=== PATIENT | female | born 1965 | race Caucasian/White ===

== ENCOUNTER 2019-11-23 10:23 | Outpatient (CLI) | payer OTHER, SELFPAY ==
--- NOTE | 2019-11-23 10:37 | MM_ITS ---
WS: [id number] BILATERAL DIGITAL SCREENING MAMMOGRAPHY WITH CAD CLINICAL INFORMATION: LT BREAST LUMP HISTORY: Screening mammogram. No current complaints. COMPARISON: None. TECHNIQUE: Bilateral CC and MLO views. FINDINGS: The breasts are composed of heterogeneous fibroglandular density tissue, which can limit the detectio n of small underlying mass lesions. Palpable marker upper outer left breast. No evidence of underlyin g mammographic mass or lesion. Ultrasound is pending. Right breast is unremarkable and unchanged. ULTRASOUND BREAST LEFT TECHNIQUE: Ultrasound left breast focused area of concern. CLINICAL INFORMATION: LT BREAST LUMP COMPARISON: None. FINDINGS: Ultrasound left breast at the 1:00 position in the area of palpable concern. No evidence of underlyin g mass or lesion. No cystic or solid lesions. No lesions to target for biopsy. MM/[id number] IMPRESSION: BI-RADS: 2-Benign FOLLOW UP: 1 Year Follow-up Recommend return to annual screening mammography.
== END 2019-11-23 10:24 | disposition home or self-care (01) ==
LOC: RADSHAW 10:23
PROVIDERS: PCP Family Medicine; Visit Provider Family Medicine
DX: N63.21 Unspecified lump in the left breast, upper outer quadrant (principal)
CPT/HCPCS: 76642; 77066

== ENCOUNTER 2021-03-06 10:49 | Outpatient (CLI) | payer OTHER, SELFPAY ==
--- NOTE | 2021-03-06 10:53 | MM_ITS ---
WS: [id number] BILATERAL SCREENING DIGITAL MAMMOGRAM WITH CAD HISTORY: SCREENING COMPARISON: 11/23/2019 and 2013 Bilateral CC and MLO views submitted. Computer aided detection analyzed. Breast composition: The breasts are heterogeneously dense, which may obscure small masses. No suspici ous masses, microcalcifications or architectural distortion. MM/[id number] IMPRESSION: BI-RADS: 1-Negative FOLLOW UP: 1 Year Follow-up
== END 2021-03-06 10:50 | disposition home or self-care (01) ==
LOC: RADSHAW 10:52
PROVIDERS: PCP Family Medicine; Visit Provider Family Medicine
DX: Z12.31 Encounter for screening mammogram for malignant neoplasm of breast (principal)
CPT/HCPCS: 77067

== ENCOUNTER 2022-03-10 11:45 | Outpatient (CLI) | payer MEDICAID, SELFPAY ==
--- NOTE | 2022-03-10 11:49 | MM_ITS ---
WS: [id number] BILATERAL SCREENING DIGITAL TOMOSYNTHESIS MAMMOGRAM WITH CAD HISTORY: SCREENING COMPARISON: 03/06/2021 and 12/20/2013 and 11/23/2019 Bilateral CC and MLO views with tomosynthesis and synthetic mammography submitted. Computer aided det ection analyzed. Breast composition: The breasts are heterogeneously dense, which may obscure small masses. No suspici ous masses, microcalcifications or architectural distortion. Benign calcifications anterior RIGHT shanika ast. MM/[place] [id number] IMPRESSION: BI-RADS: 2-Benign FOLLOW UP: 1 Year Follow-up
== END 2022-03-10 11:46 | disposition home or self-care (01) ==
LOC: RAD 11:46
PROVIDERS: PCP Family Medicine; Visit Provider Family Medicine
DX: Z12.31 Encounter for screening mammogram for malignant neoplasm of breast (principal)
CPT/HCPCS: 77063; 77067

== ENCOUNTER 2023-01-20 13:08 | Emergency (ER) | payer MEDICAID, SELFPAY ==
[2023-01-20 13:17] VITALS: BP 152/101; PULSE 104; RESP 18; O2SAT 96; BMI 18.3
--- NOTE | 2023-01-20 13:30 | XR_ITS ---
WS: [id number] Portable AP upright chest, 01/20/2023 Clinical Data: afib Comparison: None. Findings: No nodules, masses or effusions are seen. There is a patchy opacity overlying the right mid lung which could represent atelectasis and/or pneumonia. Both diaphragms are flattened. The heart is slightly enlarged. The pulmonary vascularity is not increased. No pneumothorax is seen. Impression: 1. Cardiomegaly. 2. Minimal patchy right midlung opacity which could represent atelectasis and/or pneumonia.
[2023-01-20 14:01] LABS: Basophils # 0.1 10^3/uL (0.0-0.1); Basophils % 0.6 %; Eosinophils # 0.2 10^3/uL (0.0-0.8); Eosinophils % 2.4 %; Hematocrit 47.8 % (37.0-47.0); Hemoglobin 15.9 g/dL (11.5-15.3); Lymphocytes # 2.5 10^3/uL (0.8-4.8); Lymphocytes % 29.2 %; Mean Corpuscular HGB Conc 33.3 g/dL (30.0-36.0); Mean Corpuscular Hemoglobin 32.3 pg (28.0-34.0); Mean Corpuscular Volume 97.2 fl (81-99); Mean Platelet Volume 9.7 fL (7.4-10.4); Monocytes # 0.8 10^3/uL (0.2-0.9); Monocytes % 9.4 %; Neutrophils # 4.89 10^3/uL (1.8-7.7); Nucleated Red Blood Cells % 0 %; Platelet Count 323 10^3/cmm (130-400); Red Blood Count 4.92 10^6/uL (4.1-5.3); Red Cell Distribution Width 11.5 % (12.1-15.1); White Blood Count 8.4 10^3/uL (4.0-10.0)
[2023-01-20 14:26] LABS: Alanine Aminotransferase 48 U/L (0-33); Albumin Level 4.7 g/dL (3.5-5.2); Alkaline Phosphatase 129 U/L (35-105); Aspartate Amino Transferase 49 U/L (0-32); Blood Urea Nitrogen 5 mg/dL (8-23); Carbon Dioxide 27 mmol/L (22-29); Chloride 94 mmol/L (98-107); Globulin 2.8 g/dL (1.3-4.6); Glomerular Filtration Rate 125.9 mL/min (90-130); Glucose 125 mg/dL (65-115); Osmolality Calculated 279 mOsm/kg (285-295); Sodium 135 mmol/L (136-145); Total Bilirubin 0.7 mg/dL (0.15-1.2); Total Protein 7.5 g/dL (6.6-8.7)
[2023-01-20 14:28] LABS: Anion Gap 18.1 (5-19); Potassium 4.1 mmol/L (3.5-5.1); Troponin(5th) Baseline 8 ng/L (0-10)
--- NOTE | 2023-01-20 14:39 | W.ED.ARRPALP ---
HPI - Arrhythmia/Palpitations General: Chief Complaint: Arrhythmia/Palpitations Stated Complaint: sent for heart issues Time Seen by Provider: 01/20/23 13:46 Source: patient Mode of arrival: ambulatory Limitations: no limitations History of Present Illness: 58-year-old female who states she was seen by her PCP last week who diagnosed with A-fib she states that her PCP had wanted her to come to the ER last week she states she does not like hospitals and could not make it up till today. She is on metoprolol she states she has no symptoms she states when she first got here she was anxious her heart rate was elevated then its now 96 in the room. She denies any chest pain denies any shortness of breath. Associated symptoms: Deny nausea or vomiting Review of Systems Const: Denies: fever(s), chills, body aches or change in appetite ENMT: Denies: throat pain or dental pain Card: Reports: irregular heart rhythm; Denies: chest pain Resp: Denies: dyspnea GI: Denies: abdominal pain, nausea, vomiting or diarrhea Musc: Denies: neck pain or back pain Skin/Breast: Denies: rash Neuro: Denies: headache(s) Physical Exam Const: COMMON NORMALS: no acute distress, patient oriented x3 and healthy appearing HENMT: COMMON NORMALS: normocephalic and atraumatic HEAD & SCALP: normocephalic and atraumatic Neck/C-Spine: COMMON NORMALS: full ROM and supple Chest: COMMONS NORMALS: normal inspection of the chest and normal palpation of entire chest wall Resp: COMMON NORMALS: normal respiratory effort, No retractions, No use of accessory muscles and clear to auscultation bilaterally AUSCULTATION: clear to auscultation bilaterally Cardio: COMMON NORMALS: No murmurs present (Cardio) RATE: tachycardic RHYTHM: abnormal rhythm irregularly irregular GI: COMMON NORMALS: Normal to inspection, nondistended, normoactive bowel sounds present, Soft to palpation, non-tender and no masses PALPATION: Yes Soft to palpation Extremity: COMMON NORMALS: normal to inspection and full ROM Neuro: COMMON NORMALS: patient oriented x3, moves all extremities and no focal motor deficits Psych: COMMON NORMALS: mental status grossly normal, Normal thought process present and cooperative THOUGHT PROCESS: Normal thought process present Skin: COMMON NORMALS: no rashes or lesions noted and no wounds GENERAL SKIN EXAM: no rashes or lesions noted Course Vital Signs: Vital signs: Vital Signs Pulse Rate 114 H 01/20/23 14:50 Respiratory Rate 18 01/20/23 14:50 Blood Pressure 142/110 01/20/23 14:50 Pulse Oximetry 95 01/20/23 14:50 Oxygen Delivery Me thod Room Air 01/20/23 14:50 MDM - Arrhythmia/Palpitations Medical Decision Making Patient presents here with A-fib with RVR is new onset spoke to her at length she does not want to stay in the hospital she states that she does not like hospitals and would much prefer to go home I spoke to the agronomy research manager Dr. Ortega she is already on metoprolol she is to continue that we will start her on Eliquis we will get her follow-up with Dr. Ortega if she worsens she is to return she understands agrees to plan. Medical Records I reviewed the patient's medical records. Lab Data I reviewed the patient's lab results. 01/20/23 13:53 01/20/23 13:53 Laboratory Results WBC 8.4 10^3/uL (4.0-10.0) 01/20/23 13:53 RBC 4.92 10^6/uL (4.1-5.3) 01/20/23 13:53 Hgb 15.9 g/dL (11.5-15.3) H 01/20/23 13:53 Hct 47.8 % (37.0-47.0) H 01/20/23 13:53 MCV 97.2 fl (81-99) 01/20/23 13:53 MCH 32.3 pg (28.0-34.0) 01/20/23 13:53 MCHC 33.3 g/dL (30.0-36.0) 01/20/23 13:53 RDW 11.5 % (12.1-15.1) L 01/20/23 13:53 Plt Count 323 10^3/cmm (130-400) 01/20/23 13:53 MPV 9.7 fL (7.4-10.4) 01/20/23 13:53 Neut % (Auto) 58.0 % 01/20/23 13:53 Lymph % (Auto) 29.2 % 01/20/23 13:53 Cavalier % (Auto) 9.4 % 01/20/23 13:53 Eos % (Auto) 2.4 % 01/20/23 13:53 Baso % (Auto) 0.6 % 01/20/23 13:53 Neut # (Auto) 4.89 10^3/uL (1.8-7.7) 01/20/23 13:53 Lymph # (Auto) 2.5 10^3/uL (0.8-4.8) 01/20/23 13:53 Cavalier # (Auto) 0.8 10^3/uL (0.2-0.9) 01/20/23 13:53 Eos # (Auto) 0.2 10^3/uL (0.0-0.8) 01/20/23 13:53 Baso # (Auto) 0.1 10^3/uL (0.0-0.1) 01/20/23 13:53 Nucleated RBC % (auto) 0 % 01/20/23 13:53 Nucleated RBCs # 0.0 /100WBC 01/20/23 13:53 Sodium 135 mmol/L (136-145) L 01/20/23 13:53 Potassium 4.1 mmol/L (3.5-5.1) 01/20/23 13:53 Chloride 94 mmol/L (98-107) L 01/20/23 13:53 Carbon Dioxide 27 mmol/L (22-29) 01/20/23 13:53 Anion Gap 18.1 (5-19) 01/20/23 13:53 BUN 5 mg/dL (8-23) L 01/20/23 13:53 Creatinine 0.5 mg/dL (0.5-0.9) 01/20/23 13:53 GFR Calculation 125.9 mL/min (90-130) 01/20/23 13:53 Glucose 125 mg/dL (65-115) H 01/20/23 13:53 Calculated Osmolality 279 mOsm/kg (285-295) L 01/20/23 13:53 Calcium 10.0 mg/dL (8.5-10.5) 01/20/23 13:53 Total Bilirubin 0.7 mg/dL (0.15-1.2) 01/20/23 13:53 AST 49 U/L (0-32) H 01/20/23 13:53 ALT 48 U/L (0-33) H 01/20/23 13:53 Alkaline Phosphatase 129 U/L (35-105) H 01/20/23 13:53 Troponin T Baseline 8 ng/L (0-10) 01/20/23 13:53 Total Protein 7.5 g/dL (6.6-8.7) 01/20/23 13:53 Albumin 4.7 g/dL (3.5-5.2) 01/20/23 13:53 Globulin 2.8 g/dL (1.3-4.6) 01/20/23 13:53 EKG Data EKG 1: I personally reviewed and interpreted this EKG as follows: EKG interpretation date: 01/20/23 EKG interpretation time: 13:37 Interpretation: afib with rvr hr [address] or t wave abnormalities qrs 91 qtc 379 Discharge Plan Discharge Patient Disposition: Home Clinical Impression: Atrial fibrillation Condition: Stable Prescriptions: New Eliquis 5 mg tablet 5 mg PO BID Qty: 60 0RF Discharge Orders: Discharge ED (Routine); Ordered 01/20/23 Ordered By: Murtaza Salinas Referrals: Liya Bonilla MD [Primary Care Provider] - Elio Mendez M.D [Physician] - 1-3 days Discharge Diet: Advance as tolerated Discharge Activity: Resume usual activity Patient Instructions: A-fib (Atrial Fibrillation) (ED) Coding Level of Care Code ED Dyed Raw Stock Blower Feeder for Leanna Rodriguez
--- NOTE | 2023-01-20 14:46 | ECG_ITS ---
[facility] Test Date: 2023-01-20 Pat Name: Elizabeth Avitia Department: Room: Gender: Female Rfp Writer: : 1965 Requested By: Murtaza Salinas Order Number: [id number] Isabel MD: Elio Mendez M.D. Measurements Intervals [place] Rate: 113 P: 0 GA: 0 QRS: 63 QRSD: 88 T: 22 QT: 315 QTc: 432 Interpretive Statements ATRIAL FIBRILLATION WITH RAPID VENTRICULAR RESPONSE WITH ABERRANT CONDUCTION OR VENTRICULAR PREMATURE COMPLEXES POSSIBLE RIGHT VENTRICULAR CONDUCTION DELAY [RSR (QR) IN V1/V2] NONSPECIFIC T-WAVE ABNORMALITY No previous ECG available for comparison Electronically Signed On 01-20-2023 15:16:42 CDT by Elio Mendez M.D. [id number]
[2023-01-20 14:50] VITALS: BP 142/110; PULSE 114; RESP 18; O2SAT 95
--- NOTE | 2023-01-21 08:45 | DCPLANNER ---
Addendum entered by Jennifer Mcnair 01/25/23 11:49: Patient has a follow up appointment scheduled for Wednesday, February 22, 2023 at 12:[address] Mendez at the [facility]. Original Note: advertising campaign manager had message to schedule a follow up appointment for patient with cardiology. advertising campaign manager sent patients information to the front office staff at the [facility]. Patients information will be printed and reviewed. Clinic will call patient with appointment information.
== END 2023-01-20 14:59 | disposition home or self-care (01) ==
PROVIDERS: Emergency Provider Emergency Medicine; PCP Family Medicine
DX: I48.91 Unspecified atrial fibrillation (principal)
CPT/HCPCS: 36415; 71045; 80053; 84484; 85025; 93005; 99285

== ENCOUNTER 2023-03-07 12:21 | Outpatient (CLI) | payer MEDICAID, SELFPAY ==
--- NOTE | 2023-03-07 12:15 | USCV_ITS ---
Elizabeth Avitia Age: 58 Gender: F : 1965 Exam Date: 03/07/2023 12:54 Ordering Phys: Elio Mendez M.D ([email or web address]) Technologist: Vanessa Bello Exam Location: [facility] [place] Indication: htn, a fib, melgar BP: 138 / 72 HR: 108 Rhythm: Atrial fibrillation Technical Quality: Good MEASUREMENTS (Male / Female) Normal Values 2D ECHO LV Diastolic Diameter PLAX 4.2 cm 4.2 - 5.9 / 3.9 - 5.3 cm LV Systolic Diameter PLAX 2.4 cm IVS Diastolic Thickness 0.9 cm 0.6 - 1.0 / 0.6 - 0.9 cm IVS Systolic Thickness 1.4 cm LVPW Diastolic Thickness 0.9 cm 0.6 - 1.0 / 0.6 - 0.9 cm LVPW Systolic Thickness 1.3 cm LVOT Diameter 2.0 cm LV Ejection Fraction 2D Teich 73.2 % LV Ejection Fraction MOD 2C 54.1 % LV Ejection Fraction 2C AL 53.9 % LA Diameter 3.3 cm LA Width 3.2 cm LA Height 4.6 cm RA Width 2.8 cm RA Height 4.6 cm Aorta at Sinotubular Diameter 2.4 cm IVC Diameter 1.4 cm M-MODE Aortic Annulus Diameter 3.0 cm LA Ao Ratio MM 1.2 MV E Point Septal Separation 0.3 cm DOPPLER AV Peak Velocity 100.0 cm/s LVOT Peak Velocity 67.0 cm/s AV Area Cont Eq vti 2.0 cm squared AV Area Cont Eq pk 2.1 cm squared MV Peak Velocity 136.0 cm/s MV Area PHT 4.3 cm squared Mitral E to A Ratio 210.1 MV E' Velocity 82.0 cm/s Mitral E to MV E' Ratio 9.6 Mitral E to LV E' Lateral Ratio 8.6 Mitral E to LV E' Septal Ratio 10.9 TR Peak Velocity 176.3 cm/s TR Peak Gradient 12.4 mmHg Right Atrial Pressure 5.0 mmHg Pulmonary Artery Systolic Pressu 17.4 mmHg PV Peak Velocity 52.0 cm/s RV Acceleration Time 0.1 s RV Ejection Time 0.3 s RV AcT/ET 0.4 FINDINGS Left Ventricle Left ventricle is normal in size. LV systolic function is normal with EF of 55 to 60%. No regional wall motion abnormalities are seen. Diastolic function is indeterminate because of atrial fibrillation Right Ventricle Normal in size and function Right Atrium Normal in size Left Atrium Normal in size Mitral Valve Structurally normal mitral valve. Moderate mitral regurgitation. Aortic Valve Structurally normal aortic valve. No significant stenosis. Tricuspid Valve Mild tricuspid regurgitation. Pulmonary artery systolic pressure is normal Pulmonic Valve Not well visualized Pericardium Normal Aorta Normal in size IVC Appears to be normal CONCLUSIONS LV systolic function is normal with EF of 55 to 60%. Diastolic function is indeterminate because of atrial fibrillation. Moderate mitral regurgitation. Mild tricuspid regurgitation. No comparison studies are available. Elio Mendez MD (Electronically Signed) Final Date: 22 March 2023 14:53 S
== END 2023-03-07 12:22 | disposition home or self-care (01) ==
LOC: RAD 12:23
PROVIDERS: PCP Family Medicine; Visit Provider Internal Medicine
DX: R06.09 Other forms of dyspnea (principal); R07.9 Chest pain, unspecified; R06.02 Shortness of breath; I10 Essential (primary) hypertension; I48.91 Unspecified atrial fibrillation; I08.1 Rheumatic disorders of both mitral and tricuspid valves
CPT/HCPCS: 93306

== ENCOUNTER 2023-04-01 10:05 | Outpatient (CLI) | payer MEDICAID, SELFPAY ==
--- NOTE | 2023-04-01 10:08 | US_ITS ---
WS: [id number] RIGHT UPPER QUADRANT ULTRASOUND HISTORY: Elevated liver enzymes COMPARISON: None available. Liver: 13.9 cm in length. Normal size with mild coarse echotexture. No mass or bile duct dilatation. Portal Vein: Normal hepatopetal flow with monophasic waveform. Gallbladder: Normally distended gallbladder with no stones or wall thickening. CBD: 0.2 cm Pancreas: Poorly visualized. Right kidney: 11.1 cm in length. Normal size and echogenicity. No hydronephrosis or mass. Aorta and IVC: Unremarkable abdominal aorta and IVC. No ascites. IMPRESSION: 1. No cholelithiasis. 2. Pancreas poorly visualized.
--- NOTE | 2023-04-01 10:10 | MM_ITS ---
WS: [id number] VIEWS: MLO and CC views both breasts. 3D digital tomosynthesis is also included in this exam. Comparison made with prior exam of 03/25/2006, 09/28/2006, 02/12/2009, 02/25/2012, 12/20/2013, 12/28/2013, 11/23/2019, 03/06/2021, 03/10/2022.. Findings: There was no sign of mass, architectural distortion or suspicious calcification in either breast. The breasts are extremely dense which lowers the sensitivity of mammography. Impression: MM/[place] [id number] BI-RADS: 2-Benign finding FOLLOW-UP: 1 Year Follow-up This mammogram was also analyzed by the Computer Aided Detection System R2 Imag e Salesperson [employer].
== END 2023-04-01 10:06 | disposition home or self-care (01) ==
LOC: RAD 10:05
PROVIDERS: PCP Family Medicine; Visit Provider Family Medicine
DX: Z12.31 Encounter for screening mammogram for malignant neoplasm of breast (principal); R74.8 Abnormal levels of other serum enzymes
CPT/HCPCS: 76705; 77063; 77067

== ENCOUNTER → 2023-05-27 10:53 | Day surgery (SDC) | payer MEDICAID, SELFPAY ==
--- NOTE | 2023-05-27 11:09 | ECG_ITS ---
[facility] Test Date: 2023-05-27 Pat Name: Elizabeth Avitia Department: Room: Gender: Female Character Actress: : 1965 Requested By: Elio Mendez Order Number: [id number] Isabel MD: Thanh Silver M.D. Measurements Intervals [place]aver Rate: 76 P: -51 CA: 198 QRS: 68 QRSD: 105 T: 43 QT: 391 QTc: 442 Interpretive Statements SINUS RHYTHM INDETERMINATE AXIS INCOMPLETE RIGHT BUNDLE BRANCH BLOCK [90+ ms QRS DURATION, TERMINAL R IN V1/V2, 40+ ms S IN I/aVL/V4/V5/V6] Compared to ECG 01/20/2023 14:46:10 Indeterminate axis now present Incomplete right bundle-branch block now present Atrial fibrillation no longer present Aberrant conduction of supraventricular beat(s) no longer present Ventricular premature complex(es) no longer present T-wave abnormality no longer present Electronically Signed On 05-27-2023 19:46:02 FLOORWORKER LASTING by Thanh Silver M.D. [id number]
[2023-05-27 11:16] VITALS: BP 147/89; PULSE 76; RESP 18; TEMP 36.6; O2SAT 89; BMI 18.1
--- NOTE | 2023-05-27 11:45 | PC.NURSE ---
1145 Dr. Mendez here to see pt. procedures cancelled due to pt not in a-fib.
--- NOTE | 2023-05-27 13:11 | PM.CONSULT ---
Providers/Reason For Consult Attending Physician: Eilo Mendez M.D Primary Care Provider: Liya Bonilla MD History of Present Illness History of Present Illness Elizabeth Avitia is a 58 year old female Medications/Allergies Home Medications Medication Instructions Recorded Confirmed Last Taken Type amlodipine 5 mg tablet 5 mg PO DAILY 02/22/23 05/27/23 05/27/23 09:45 History amiodarone 400 mg tablet 400 mg PO DAILY #90 tabs 05/16/23 05/27/23 05/27/23 09:45 Rx apixaban 5 mg tablet (Eliquis) 5 mg PO BID #90 tabs 05/16/23 05/27/23 05/27/23 09:45 Rx metoprolol tartrate 100 mg tablet 100 mg PO DIRECTED 05/16/23 05/27/23 05/26/23 History Allergies Allergy/AdvReac Type Severity Reaction Status Date / Time No Known Allergies Allergy Verified 05/16/23 12:48 Vitals/I&O/Wt Last Vital Signs Temp 97.8 F 05/27/23 11:16 Pulse 76 05/27/23 11:16 Resp 18 05/27/23 11:16 BP 147/89 05/27/23 11:16 Pulse Ox 89 L 05/27/23 11:16 O2 Del Method Room Air 05/27/23 11:16 Weight last 48 hrs Weight 112 lb Coding Level of Care Code Acute Code for Chg Fwd
== END ==
LOC: GILAB 10:54
PROVIDERS: PCP Family Medicine; Visit Provider Internal Medicine
PROC: (CPT 93312; principal; 2023-05-27 12:00)
PROC: 5A2204Z Restoration of Cardiac Rhythm, Single (ICD-10-PCS; 2023-05-27 12:00)
DX: I48.91 Unspecified atrial fibrillation (principal)
CPT/HCPCS: 93005

== ENCOUNTER 2023-05-27 12:11 | Inpatient (IN) | payer MEDICAID, SELFPAY ==
[2023-05-27] VITALS (7 sets, daily range): BP systolic 108–151; BP diastolic 70–90; PULSE 62–79; RESP 16–18; TEMP 36.3–36.7; O2SAT 94–99; BMI 18.1
--- NOTE | 2023-05-27 12:18 | XRR_ITS ---
PROCEDURE INFORMATION: Exam: XR Chest Exam date and time: 05/27/2023 12:44 PM Age: 58 years old Clinical indication: Shortness of breath; Additional info: SOB TECHNIQUE: Imaging protocol: Radiologic exam of the chest. Views: 1 view. COMPARISON: CR XR chest 1V portable [id number] 01/20/2023 1:42 PM FINDINGS: Lungs: Interval appearance of areas of increased opacity in the right mid lung zone with components of airspace, ground-glass and coarsened reticular opacity. Additional elliptical opacity in the right mid lung zone has an appearance suggestive of fluid in the interlobar fissure. Small right pleural effusion. No left effusion. Pulmonary emphysema. Coarsened interstitium is present. Interval appearance of some Seble lines at both lung bases. Cardiac silhouette appears slightly increased though component age magnifications present. Pleural spaces: See Lungs finding. Heart/Mediastinum: See Lungs finding. Bones/joints: No significant pathology. XR/XR chest 1V portable [id number] IMPRESSION: Interval appearance of new abnormalities. Constellation of findings suggests mild congestive failure and/or fluid overload with possible superimposed infectious/inflammatory pathology of the right lung base. Clinical correlation recommended.
--- NOTE | 2023-05-27 12:32 | ECG_ITS ---
[facility] Test Date: 2023-05-27 Pat Name: Elizabeth Avitia Department: Room: Gender: Female Deputy Chief Magistrate: : 1965 Requested By: Khloe Duron Order Number: [id number] Hall MD: Thanh Silver M.D. Measurements Intervals [place] Rate: 74 P: -81 NH: 202 QRS: 71 QRSD: 105 T: 57 QT: 401 QTc: 448 Interpretive Statements SINUS RHYTHM INCOMPLETE RIGHT BUNDLE BRANCH BLOCK [90+ ms QRS DURATION, TERMINAL R IN V1/V2, 40+ ms S IN I/aVL/V4/V5/V6] Compared to ECG 05/27/2023 11:22:51 Indeterminate axis no longer present Electronically Signed On 05-27-2023 19:28:09 MERCHANDISE FLOW ASSOCIATE by Thanh Silver M.D. [id number]
--- NOTE | 2023-05-27 12:35 | ED_ITS ---
<Statement entered by Tomasz Smith DO - 05/27/23 14:40> This patient was seen and evaluated by the PA. Per departmental policy this patient was reviewed with me in real-time while in the emergency department by the PA who provided her primary care. We reviewed her x-ray findings and other ancillary studies which suggested community associated pneumonia with hypoxia and hyponatremia. Her presentation is consistent with that which would benefit from IV antibiotics, hospitalization and further care. She discussed the case with the attending hospitalist who agreed to admit the patient. I agree with the plan of care as outlined in this medical record. I did not personally see or evaluate the patient. HPI - SOB/Dyspnea 2 General: Chief Complaint: Shortness of Breath/Dyspnea Stated Complaint: lethargic Time Seen by Provider: 05/27/23 12:12 Source: patient Mode of arrival: wheelchair Limitations: no limitations History of Present Illness: HPI Narrative: Patient is a 58-year-old female who presents to ED today from the surgery center. She is reportedly scheduled for a GEOVANNY with cardioversion for her uncontrolled atrial fibrillation. Apparently upon arrival she had converted out of atrial fibrillation this procedure could not be performed. She was noted to be slightly hypoxic and complaining of shortness of breath and seemed somewhat lethargic. Cardiology had recommended she come to the ED for evaluation as they had concerns for CHF. PMH is significant for uncontrolled atrial fibrillation and hypertension. Current medications include amiodarone, amlodipine, apixaban, and metoprolol. Patient tells me her shortness of breath has been going on almost a year although it has been worsening over the past few months. Symptoms seem to be worse with exertion. Denies recent illness or URI-like symptoms. Last echo was in March 2023 with results as follows: CONCLUSIONS LV systolic function is normal with EF of 55 to 60%. Diastolic function is indeterminate because of atrial fibrillation. Moderate mitral regurgitation. Mild tricuspid regurgitation. No comparison studies are available. MD elicited complaint: shortness of breath Pertinent past history: other (atrial fib) Onset (ago): month(s) Timing: constant Severity: moderate Exacerbating factors: lying flat and exertion Relieving factors: rest Associated symptoms: Reports orthopnea and palpitations (chronic); Deny abdominal pain, chest congestion, chest pain, dizziness, extremity pain, fever(s), hemoptysis, lightheadedness, nausea, syncope or vomiting Treatment prior to arrival: oxygen Related Data: Home oxygen amount: none Review of Systems 2 Const: Denies: fever(s) or chills Eyes: Denies: change in vision or blurry vision Card: Reports: palpitations (chronic), irregular heart rhythm, edema, dyspnea on exertion (chronic) and orthopnea; Denies: chest pain, swelling of feet/ankles, lightheadedness, syncope, pre- syncope, leg pain with exertion or acrocyanosis Resp: Reports: dyspnea; Denies: productive cough, non-productive cough, wheezing, stridor, pain on inspiration, change in phlegm color, hemoptysis or chest congestion GI: Denies: abdominal pain, nausea, vomiting, heartburn or diarrhea : Denies: flank pain or dysuria Musc: Denies: neck pain, back pain, extremity pain or joint pain Skin/Breast: Denies: rash Neuro: Denies: headache(s), numbness in extremities, weakness in extremities, sensory changes or dizziness Physical Exam 2 Const: COMMON NORMALS: no acute distress, average body habitus, patient oriented x3, no limitations, healthy appearing, alert and well nourished HENMT: COMMON NORMALS: normocephalic and atraumatic HEAD & SCALP: n ormocephalic and atraumatic Neck/C-Spine: COMMON NORMALS: full ROM, no lymphadenopathy, supple and no meningeal signs Chest: COMMONS NORMALS: normal inspection of the chest Resp: COMMON NORMALS: normal respiratory effort AUSCULTATION: crackles Laterality: right (mid to lower) OTHER: slightly hypoxic upon arrival-placed on 2L O2 and now satting normally Cardio: COMMON NORMALS: regular rate and regular rhythm RATE: regular rate RHYTHM: regular rhythm GI: COMMON NORMALS: Normal to inspection, nondistended, normoactive bowel sounds present, Soft to palpation, non-tender, No hepatosplenomegaly present and no masses PALPATION: Yes Soft to palpation and Yes No hepatosplenomegaly present : COMMON NORMALS: Yes no CVA tenderness BLADDER/KIDNEY EXAM: Yes no CVA tenderness Back/Pelvis: COMMON NORMALS: no CVA tenderness and thoracic and lumbar spine normal to inspection Extremity: COMMON NORMALS: normal to inspection, full ROM, capillary refill normal, no joint enlargement and no calf tenderness NARRATIVE EXTREMITY EXAM: slight bilateral symmetrical edema GENERAL: Yes normal exam except as noted Neuro: COMMON NORMALS: patient oriented x3, moves all extremities, no focal motor deficits and no sensory deficits noted SENSORIUM/ORIENTATION: Yes alert MENINGEAL SIGNS: Yes no meningeal signs Skin: COMMON NORMALS: no rashes or lesions noted GENERAL SKIN EXAM: no rashes or lesions noted Course 2 Vital Signs: Vital signs: Vital Signs Temperature 98.0 F 05/27/23 12:17 Pulse Rate 79 05/27/23 12:17 Respiratory Rate 16 05/27/23 12:17 Blood Pressure 151/90 05/27/23 12:17 Pulse Oximetry 94 05/27/23 12:17 Oxygen Delivery Me thod Nasal Cannula 05/27/23 12:17 Oxygen Flow Rate 2 05/27/23 12:17 MDM - SOB/Dyspnea Medical Decision Making Patient is a 58-year-old female here after her planned GEOVANNY with cardioversion was canceled for complaints of shortness of breath, hypoxia, lethargy. Report was patient was satting 88% on room air when she arrived for her procedure. She does complain of shortness of breath and some new edema. She has not been running fevers. On her blood work today she is hyponatremic at 120. When asked she does report to diarrhea for 2 days recently after she was started on amiodarone. Her BNP is elevated at almost 1400 with no comparisons. CXR showing mild congestive failure and/or fluid overload with possible superimposed infectious/inflammatory pathology of the right lung base. I spoke with Dr. Smith who agrees with need for admission. She has been started on IV Azithromycin/Rocephin. I spoke to Dr. Lagos/hospitalist for admission. Differential Diagnosis Likely congestive heart failure and community acquired pneumonia Lab Data 05/27/23 12:35 05/27/23 12:35 Labs/Radiology: Radiology Impressions Chest X-Ray 05/27/23 12:18 IMPRESSION: Interval appearance of new abnormalities. Constellation of findings suggests mild congestive failure and/or fluid overload with possible superimposed infectious/inflammatory pathology of the right lung base. Clinical correlation recommended. Laboratory Results WBC 9.47 10^3/uL (3.29-11.43) 05/27/23 12:35 RBC 4.58 10^6/uL (3.85-5.65) 05/27/23 12:35 Hgb 15.20 g/dL (11.27-16.99) 05/27/23 12:35 Hct 42.0 % (36-47) 05/27/23 12:35 MCV 91.7 fl (85-98) 05/27/23 12:35 MCH 33.2 pg (27-33) H 05/27/23 12:35 MCHC 36.2 g/dL (30-55) 05/27/23 12:35 RDW 11.6 % (12.1-15.1) L 05/27/23 12:35 Plt Count 176 10^3/cmm (157-399) 05/27/23 12:35 MPV 10.0 fL (7.4-10.4) 05/27/23 12:35 Neut % (Auto) 78.1 % 05/27/23 12:35 Lymph % (Auto) 12.9 % 05/27/23 12:35 [place] % (Auto) 8.4 % 05/27/23 12:35 Eos % (Auto) 0.0 % 05/27/23 12:35 Baso % (Auto) 0.3 % 05/27/23 12:35 Neut # (Auto) 7.39 10^3/uL (1.8-7.7) 05/27/23 12:35 Lymph # (Auto) 1.2 10^3/uL (0.8-4.8) 05/27/23 12:35 [place] # (Auto) 0.8 10^3/uL (0.2-0.9) 05/27/23 12:35 Eos # (Auto) 0.0 10^3/uL (0.0-0.8) 05/27/23 12:35 Baso # (Auto) 0.0 10^3/uL (0.0-0.1) 05/27/23 12:35 Nucleated RBC % (auto) 0 % 05/27/23 12:35 Nucleated RBCs # 0.0 /100WBC 05/27/23 12:35 Sodium 120 mmol/L (136-145) L 05/27/23 12:35 Potassium 4.0 mmol/L (3.5-5.1) 05/27/23 12:35 Chloride 81 mmol/L (98-107) L 05/27/23 12:35 Carbon Dioxide 24 mmol/L (22-29) 05/27/23 12:35 Anion Gap 19.0 (5-19) 05/27/23 12:35 BUN 4 mg/dL (8-23) L 05/27/23 12:35 Creatinine 0.3 mg/dL (0.5-0.9) L 05/27/23 12:35 GFR Calculation 226.9 mL/min (90-130) H 05/27/23 12:35 Glucose 105 mg/dL (65-115) 05/27/23 12:35 Calculated Osmolality 247 mOsm/kg (285-295) L 05/27/23 12:35 Calcium 9.1 mg/dL (8.5-10.5) 05/27/23 12:35 Total Bilirubin 1.3 mg/dL (0.15-1.2) H 05/27/23 12:35 AST 28 U/L (0-32) 05/27/23 12:35 ALT 35 U/L (0-33) H 05/27/23 12:35 Alkaline Phosphatase 143 U/L (35-105) H 05/27/23 12:35 Troponin T Baseline 8 ng/L (0-10) 05/27/23 12:35 NT-Pro-B Natriuret Pep 1397 pg/mL (0-125) H 05/27/23 12:35 Total Protein 7.1 g/dL (6.6-8.7) 05/27/23 12:35 Albumin 4.6 g/dL (3.5-5.2) 05/27/23 12:35 Globulin 2.5 g/dL (1.3-4.6) 05/27/23 12:35 Procalcitonin 0.02 ng/mL (0-0.5) 05/27/23 12:35 All radiology interpretation(s) finalized by discharge Discharge Plan Discharge Patient Disposition: Admitted As Inpatient Clinical Impression: Acute hyponatremia Community acquired pneumonia Qualifiers: Laterality: right Lung location: lower lobe of lung Qualified Code(s): J18.9 - Pneumonia, unspecified organism Congestive heart failure Qualifiers: Heart failure type: other Qualified Code(s): I50.9 - Heart failure, unspecified Condition: Stable Coding Level of Care Code ED Mri Specialist for Leanna Rodriguez
[2023-05-27 12:47] LABS: Basophils % 0.3 %; Lymphocytes # 1.2 10^3/uL (0.8-4.8); Lymphocytes % 12.9 %; Mean Corpuscular HGB Conc 36.2 g/dL (30-55); Mean Corpuscular Hemoglobin 33.2 pg (27-33); Mean Corpuscular Volume 91.7 fl (85-98); Monocytes # 0.8 10^3/uL (0.2-0.9); Monocytes % 8.4 %; Neutrophils # 7.39 10^3/uL (1.8-7.7); Neutrophils % 78.1 %; Nucleated Red Blood Cells % 0 %; Platelet Count 176 10^3/cmm (157-399); Red Blood Count 4.58 10^6/uL (3.85-5.65); Red Cell Distribution Width 11.6 % (12.1-15.1); White Blood Count 9.47 10^3/uL (3.29-11.43)
[2023-05-27 13:15] LABS: Troponin(5th) Baseline 8 ng/L (0-10)
[2023-05-27 13:27] LABS: Alanine Aminotransferase 35 U/L (0-33); Albumin Level 4.6 g/dL (3.5-5.2); Alkaline Phosphatase 143 U/L (35-105); Aspartate Amino Transferase 28 U/L (0-32); Blood Urea Nitrogen 4 mg/dL (8-23); Calcium 9.1 mg/dL (8.5-10.5); Carbon Dioxide 24 mmol/L (22-29); Chloride 81 mmol/L (98-107); Globulin 2.5 g/dL (1.3-4.6); Glomerular Filtration Rate 226.9 mL/min (90-130); Glucose 105 mg/dL (65-115); NT Pro B Type Natriuretic Pept 1397 pg/mL (0-125); Osmolality Calculated 247 mOsm/kg (285-295); Sodium 120 mmol/L (136-145); Total Bilirubin 1.3 mg/dL (0.15-1.2); Total Protein 7.1 g/dL (6.6-8.7)
[2023-05-27 13:53] LABS: Procalcitonin 0.02 ng/mL (0-0.5)
--- NOTE | 2023-05-27 14:14 | ECG_ITS ---
[facility] Test Date: 2023-05-27 Pat Name: Elizabeth Avitia Department: Room: Gender: Female Early Education Teacher: : 1965 Requested By: Khloe Duron Order Number: [id number] Hall MD: Thanh Silver M.D. Measurements Intervals [place] Rate: 74 P: -66 PA: 202 QRS: 61 QRSD: 106 T: 54 QT: 418 QTc: 465 Interpretive Statements SINUS RHYTHM POSSIBLE RIGHT VENTRICULAR CONDUCTION DELAY [RSR (QR) IN V1/V2] Compared to ECG 05/27/2023 12:32:24 Incomplete right bundle-branch block no longer present Electronically Signed On 05-27-2023 19:46:39 WASH WORKER by Thanh Silver M.D. [id number]
--- NOTE | 2023-05-27 14:24 | P.CONIM_ITS ---
Providers/Reason For Consult 2 Consulting Physician/Specialty*: Elio Mendez MD/ Cardiology Reason for Consult*: Congestive heart failure Requesting Physician: Dr Lagos Attending Physician: Dr Lagos Primary Care Provider: Liya Bonilla MD History of Present Illness History of Present Illness Elizabeth Avitia is a 58 year old female with recent diagnosis of atrial fibrillation who was recently started on amiodarone in preparation for GEOVANNY cardioversion today. However when patient came for the procedure, she was found to be in normal sinus rhythm. She says since starting amiodarone she has been feeling very weak and tired. Also is getting worsening shortness of breath. On examination has features of volume overload. She was sent from procedure area to the emergency room secondary to congestive heart failure symptoms. She is found to have a NT proBNP of over 1400. Troponins have not trended up significantly. Recent echo had showed normal LV systolic function with moderate mitral regurgitation. Of note her sodium level is 120. At baseline it was 135. Review of Systems 2 Const: Denies: fever(s) or chills Card: Reports: palpitations, irregular heart rhythm, swelling of feet/ankles (improving), lightheadedness and dyspnea on exertion; Denies: chest pain, pre-syncope, orthopnea or leg pain with exertion Resp: Reports: dyspnea; Denies: productive cough or non-productive cough Musc: Denies: neck pain or back pain Neuro: Reports: headache(s); Denies: dizziness Psych: Denies: anxiety, depression, suicidal ideation or homicidal ideation [place]/Lymph: Denies: easy bruising or easy bleeding Medications/Allergies Home Medications Medication Instructions Recorded Confirmed Last Taken Type amlodipine 5 mg tablet 5 mg PO DAILY 02/22/23 05/27/23 05/27/23 09:45 History amiodarone 400 mg tablet 400 mg PO DAILY #90 tabs 05/16/23 05/27/23 05/27/23 09:45 Rx apixaban 5 mg tablet (Eliquis) 5 mg PO BID #90 tabs 05/16/23 05/27/23 05/27/23 09:45 Rx metoprolol tartrate 100 mg tablet 100 mg PO DIRECTED 05/16/23 05/27/23 05/26/23 History Allergies Allergy/AdvReac Type Severity Reaction Status Date / Time No Known Allergies Allergy Verified 05/16/23 12:48 PFSH Acute 2 PFSH: Medical History History of atrial fibrillation Surgical History No pertinent past surgical history Social History Smoking and tobacco/nicotine status: current some day tobacco/nicotine user Alcohol intake: never Substance/Drug Use: never Vitals/I&O/Wt Last Vital Signs Temp 98.0 F 05/27/23 12:17 Pulse 79 05/27/23 12:17 Resp 16 05/27/23 12:17 BP 151/90 05/27/23 12:17 Pulse Ox 94 05/27/23 12:17 O2 Del Method Nasal Cannula 05/27/23 12:17 O2 Flow Rate 2 05/27/23 12:17 Weight last 48 hrs Weight 112 lb Physical Exam 2 Narrative: GENERAL: Patient is alert, awake and oriented x3. [] NECK: No jugular vein distension. [] HEENT: No cyanosis. No icterus. No pallor. [] HEART: Regular S1 and S2. No murmur, rub or gallop. [] LUNGS: has bilateral crackles CENTRAL NERVOUS SYSTEM: Grossly nonfocal. [] EXTREMITIES: Lower extremities with 1+ edema bilaterally Data 05/29/23 03:32 05/29/23 03:32 A&P Assessment and plan (1) Dyspnea on exertion: (2) Hypertension: (3) Congestive heart failure: Qualifiers: Heart failure type: other Qualified Code(s): I50.9 - Heart failure, unspecified (4) Acute hyponatremia: Plan Patient had presented to hospital for scheduled GEOVANNY cardioversion. However she was already found to be in normal sinus rhythm. However she has significant congestive heart failure symptoms. She was sent to the ER. Sodium is significantly low. Likely hypervolemic hyponatremia. Start Lasix 40 mg twice daily. We will hold amiodarone. Continue Eliquis for anticoagulation. Continue metoprolol. Thank you for involving us with care of this patient. We will continue to follow. Please call with questions. Consult Attestations 2 Medical Necessity Statement: Care expected to cross 2 midnights. Coding Level of Care Code Acute Code for Chg Fwd Diagnoses Dyspnea on exertion R06.09 Hypertension I10 Congestive heart failure I50.9 Heart failure type: other Acute hyponatremia E87.1
[2023-05-27] MEDS: cefTRIAXone 1,000 MG in sodium chloride 0.9% (plus) 50 ML 100 MG IV (14:44)
--- NOTE | 2023-05-27 14:48 | PC.NURSE ---
PT REFUSING RESPIRATORY SWABS. PT STATES SHE DOESNT BUY INTO THAT KIND OF STUFF.
[2023-05-27 14:55] LABS: NT Pro B Type Natriuretic Pept 1437 pg/mL (0-125)
[2023-05-27 15:15] LABS: Troponin 5 2HR 8.98 ng/L (0-10); Troponin 5 2HR Delta 0.98 ABS# (0-10)
--- NOTE | 2023-05-27 15:33 | CTR_ITS ---
PROCEDURE INFORMATION: Exam: CTA Chest With Contrast Exam date and time: 05/27/2023 4:23 PM Age: 58 years old Clinical indication: Shortness of breath; Additional info: SOB TECHNIQUE: Imaging protocol: Computed tomographic angiography of the chest with contrast. Exam focused on the arteries. 3D rendering (Not supervised by radiologist): MIP and/or 3D reconstructed images were created by the technologist. Radiation optimization: All CT scans at this facility use at least one of these dose optimization techniques: automated exposure control; mA and/or kV adjustment per patient size (includes targeted exams where dose is matched to clinical indication); or iterative reconstruction. Contrast material: OMNNI 350; Contrast volume: 80 ml; Contrast route: INTRAVENOUS (IV); REPORTING DATA: Count of CT and Cardiac NM exams in prior 12 months: This patient has received 0 known CTs and 0 known cardiac nuclear medicine studies in the 12 months prior to the current study. COMPARISON: CR XR chest 1V portable [id number] 05/27/2023 12:44 PM RADIATION DOSE METRICS: Total DLP (mGy-cm): 182.53 FINDINGS: Pulmonary arteries: No pulmonary embolism. Aorta: No abdominal aortic aneurysm. Thyroid: No significant thyroid pathology. Lungs: Moderate to severe pulmonary emphysema. Septal thickening at the lung apices in a pattern consistent with venous hypertension. Pleural spaces: Small bilateral pleural effusions. Right effusion extends into the interlobar fissure with some loculation. Right pleural calcifications are also present. Mild right pleural thickening. Heart: Cardiomegaly Coronary arteries: Coronary artery calcifications. Mediastinal space: Mural thickening distal thoracic esophagus. Lymph nodes: Mild mediastinal lymphadenopathy precarinal lymph nodes measuring up to 1.5 cm short axis as an example. No hilar or axillary lymphadenopathy. Diaphragm: Small hiatal hernia. Intraperitoneal space: No significant pathology in the imaged upper abdomen. Bones/joints: Mild degenerative change present in the spine. Soft tissues: Unremarkable. CT/CT angio chest PE protcl [id number] IMPRESSION: 1. No evidence of pulmonary embolism. 2. Findings compatible with congestive failure. 3. Mild mediastinal lymphadenopathy. 4. Asymmetric right pleural calcifications and pleural thickening consistent with remote insult. 5. Small hiatal hernia with mural thickening distal thoracic esophagus. COMMENTS: In the absence of a history or active diagnosis of lung cancer, it is recommended that this patient with emphysema be evaluated for enrollment in a low dose CT lung cancer screening program.
--- NOTE | 2023-05-27 15:35 | P.HP_ITS ---
Providers/Chief Complaint 2 Primary Care Provider: Liya Bonilla MD Chief Complaint: lethargic History of Present Illness Elizabeth Avitia is a 58 year old female with a past medical history of smoking, no diagnosis of COPD, typically smokes a few cigarettes a day, diagnosis of atrial fibrillation on Eliquis, was planning on having a cardioversion, but was in normal sinus rhythm, due to her complaints of shortness of breath, fatigue, malaise she was directed to go to emergency room. Patient tells me for the last few months, she has been having fatigue, malaise, weight loss, shortness of breath at rest progressing to exertion. She tells her that now she needs a wheelchair to go and from her doctors appointments, normally she is able to walk, she just feels so fatigued and malaise. She has a nonproductive cough. No hemoptysis. No calf pain, no calf swelling. Denies any chest pain. She was diagnosed with atrial fibrillation a few months ago when they were doing a workup for her shortness of breath with exertion, she she denies any chest pain. Reports after taking amiodarone she started to have worsening fatigue, malaise, severe diarrhea she feels dehydrated Review of Systems 2 Eyes: Denies: change in vision Card: Denies: chest pain Resp: Reports: dyspnea and non-productive cough GI: Denies: abdominal pain : Denies: flank pain or difficulty voiding Skin/Breast: Denies: rash Neuro: Denies: headache(s) or numbness in extremities Medications/Allergies Home Medications Medication Instructions Recorded Confirmed Last Taken Type amlodipine 5 mg tablet 5 mg PO DAILY 02/22/23 05/27/23 05/27/23 09:45 History amiodarone 400 mg tablet 400 mg PO DAILY #90 tabs 05/16/23 05/27/23 05/27/23 09:45 Rx apixaban 5 mg tablet (Eliquis) 5 mg PO BID #90 tabs 05/16/23 05/27/23 05/27/23 09:45 Rx metoprolol tartrate 100 mg tablet 100 mg PO DIRECTED 05/16/23 05/27/23 05/26/23 History Allergies Allergy/AdvReac Type Severity Reaction Status Date / Time No Known Allergies Allergy Verified 05/16/23 12:48 PFSH Acute 2 PFSH: Medical History (Updated 05/27/23 @ 15:40 by Juan Lagos MD) History of atrial fibrillation Surgical History (Updated 05/27/23 @ 15:38 by Juan Lagos MD) No pertinent past surgical history Social History (Updated 05/27/23 @ 15:36 by Juan Lagos MD) Smoking and tobacco/nicotine status: current some day tobacco/nicotine user Alcohol intake: never Substance/Drug Use: never Vitals/I&O/Wt Last Vital Signs Temp 98.0 F 05/27/23 12:17 Pulse 79 05/27/23 12:17 Resp 16 05/27/23 12:17 BP 151/90 05/27/23 12:17 Pulse Ox 94 05/27/23 12:17 O2 Del Method Nasal Cannula 05/27/23 12:17 O2 Flow Rate 2 05/27/23 12:17 Weight last 48 hrs Weight 50.802 kg Physical Exam 2 Const: COMMON NORMALS: no acute distress and patient oriented x3 HENMT: COMMON NORMALS: normocephalic HEAD & SCALP: normocephalic Eye: COMMON NORMALS: Equal, round and reactive pupils present Neck/C-Spine: COMMON NORMALS: no JVD Resp: COMMON NORMALS: normal respiratory effort, No retractions, No use of accessory muscles and clear to auscultation bilaterally AUSCULTATION: clear to auscultation bilaterally Cardio: COMMON NORMALS: no JVD, regular rate, regular rhythm, S1 normal heart sound present and S2 normal heart sound present RATE: regular rate RHYTHM: regular rhythm HEART SOUNDS: S1 normal heart sound present and S2 normal heart sound present GI: COMMON NORMALS: Normal to inspection, nondistended, normoactive bowel sounds present, Soft to palpation, non-tender, No hepatosplenomegaly present, no masses and no bruits PALPATION: Yes Soft to palpation and Yes No hepatosplenomegaly present Extremity: COMMON NORMALS: capillary refill normal, no calf tenderness and no pedal edema Neuro: COMMON NORMALS: patient oriented x3, CN's II-XII intact bilaterally, moves all extremities and no focal motor deficits Psych: COMMON NORMALS: mental status grossly normal Data 05/27/23 12:35 05/27/23 12:35 A&P Assessment and plan (1) Pneumonia: (2) Acute hyponatremia: (3) Dyspnea on exertion: (4) Hyperbilirubinemia: (5) Transaminitis: Plan Pneumonia, ? Currently on 2 L, ? Continue Rocephin?continue azithromycin, ? Sputum cultures collected?blood cultures, ? Monitor respiratory status closely ? CT angiogram of the chest Hyponatremia ? Dehydration, diarrhea ? Could be from amiodarone, next?monitor serum sodiums every 4 hours Complains of dyspnea on exertion ? Is a smoker ? No formal diagnosis of COPD?order CT angiogram of the chest Hyperbilirubinemia, transaminitis, will see with CT picks up, will consider ordering ultrasound of the liver and gallbladder, Weight loss, fatigue, malaise, CT of the chest as above is a smoker, Atrial fibrillation, was in normal sinus rhythm continue Eliquis, continue metoprolol Attestations 2 Medical Necessity Statement*: Patient requires hospitalization, inpatient, greater than 2 midnights, for pneumonia, hyponatremia Diagnoses Pneumonia J18.9 Acute hyponatremia E87.1 Dyspnea on exertion R06.09 Hyperbilirubinemia E80.6 Transaminitis R74.01
[2023-05-27] MEDS: azithromycin 500 MG in sodium chloride 0.9% 250 ML 250 MG IV (15:49)
--- NOTE | 2023-05-27 15:54 | PC.NURSE ---
BLOOD CULTURE COLLECTION DELAYED DUE TO LAB, THIS DELAYED ABX START TIME X2 DIFFERENT ABX.
[2023-05-27 16:05] LABS: NT Pro B Type Natriuretic Pept 1454 pg/mL (0-125)
[2023-05-27] MEDS: iohexol 350 mg/mL 500 mL Btl (per mL) IV (16:31)
[2023-05-27 17:39] LABS: Sodium 123 mmol/L (136-145)
[2023-05-27] MEDS: apixaban 5 mg Tablet PO (18:15)
[2023-05-27] MEDS: pantoprazole 40 mg SDV IVP (18:16)
[2023-05-27] MEDS: metoprolol tartrate 50 mg Tablet PO (18:16)
[2023-05-27] MEDS: FUROsemide 10 mg/mL SDV 4mL 40 MG IVP (18:16)
[2023-05-27 18:27] LABS: Estmated Average Glucose 103; Hemoglobin A1C 5.2 % (4.0-6.0)
[2023-05-27 18:35] LABS: Chol HDL Ratio 2.46 mg/dL (0.0-4.40); Cholesterol 128 mg/dL (0-200); HDL Cholesterol 52 mg/dL (60-100); LDL Cholesterol Calculated 65 mg/dL (50-129); LDL HDL Ratio 1.25 RATIO (0.00-3.22); Thyroid Stimulating Hormone 5.56 uIU/mL (0.27-4.20); Triglycerides 54 mg/dL (0-150)
[2023-05-27 19:08] LABS: Troponin 5 6HR 12.05 ng/L (0-10); Troponin 5 6HR Delta 4.05 ng/L (0-12)
[2023-05-28] VITALS (15 sets, daily range): BP systolic 103–117; BP diastolic 60–71; PULSE 57–88; RESP 16–18; TEMP 36.4–36.7; O2SAT 96–100
[2023-05-28 00:46] LABS: Sodium 123 mmol/L (136-145)
[2023-05-28 00:58] LABS: Add Urine Microscopic? NO; Charge for UA Resulting for Rev
[2023-05-28 01:00] LABS: Bilirubin Urine Neg (Negative); Blood Urine Neg (Negative); Glucose Urine UA Norm (Normal); Ketones Urine Negative (Negative); Leukocyte Esterase Urine Negative (Negative); Nitrate Urine Negative (Negative); Protein Urine Neg (Negative); Specific Gravity, Urine 1.005 (1.005-1.030); Urine Appearance Clear (CLEAR); Urine Color Dark Yellow (Yellow); Urobilinogen Urine Norm (Negative); pH Urine 6 (5-7)
[2023-05-28 05:04] LABS: Basophils % 0.3 %; Eosinophils % 0.1 %; Hematocrit 34.6 % (36-47); Lymphocytes # 1.7 10^3/uL (0.8-4.8); Lymphocytes % 25.5 %; Mean Corpuscular HGB Conc 36.1 g/dL (30-55); Mean Corpuscular Hemoglobin 32.8 pg (27-33); Mean Corpuscular Volume 90.8 fl (85-98); Monocytes # 0.7 10^3/uL (0.2-0.9); Monocytes % 10.3 %; Neutrophils # 4.23 10^3/uL (1.8-7.7); Neutrophils % 63.5 %; Nucleated Red Blood Cells % 0 %; Platelet Count 185 10^3/cmm (157-399); Red Blood Count 3.81 10^6/uL (3.85-5.65); Red Cell Distribution Width 11.4 % (12.1-15.1); White Blood Count 6.67 10^3/uL (3.29-11.43)
[2023-05-28 05:25] LABS: Sodium 125 mmol/L (136-145)
[2023-05-28 05:34] LABS: Alanine Aminotransferase 25 U/L (0-33); Albumin Level 3.6 g/dL (3.5-5.2); Alkaline Phosphatase 104 U/L (35-105); Anion Gap 13.5 (5-19); Aspartate Amino Transferase 21 U/L (0-32); Blood Urea Nitrogen 4 mg/dL (8-23); Calcium 8.5 mg/dL (8.5-10.5); Carbon Dioxide 29 mmol/L (22-29); Chloride 85 mmol/L (98-107); Globulin 2.2 g/dL (1.3-4.6); Glomerular Filtration Rate 226.9 mL/min (90-130); Glucose 86 mg/dL (65-115); Magnesium 1.4 mg/dL (1.7-2.3); Osmolality Calculated 254 mOsm/kg (285-295); Phosphorus 3.6 mg/dL (2.5-4.5); Potassium 3.5 mmol/L (3.5-5.1); Sodium 124 mmol/L (136-145); Total Bilirubin 0.9 mg/dL (0.15-1.2); Total Protein 5.8 g/dL (6.6-8.7)
[2023-05-28] MEDS: ipratropium-albuterol 3 mL Neb INHALATION ×4 (07:41→20:26)
[2023-05-28] MEDS: budesonide 0.5 mg/2 mL Neb INHALATION ×2 (08:00→20:26)
[2023-05-28 08:14] LABS: Sodium 124 mmol/L (136-145)
[2023-05-28] MEDS: metoprolol tartrate 50 mg Tablet 100 MG PO (08:32)
[2023-05-28] MEDS: apixaban 5 mg Tablet PO ×2 (08:32→18:12)
--- NOTE | 2023-05-28 08:45 | PC.NURSE ---
This nurse explained to patient about respiratory panel and why they ordered one. Patient refused and stated, they have took enough blood from me and I am not interested in doing one of those.
[2023-05-28] MEDS: FUROsemide 10 mg/mL SDV 4mL 40 MG IVP (09:43)
--- NOTE | 2023-05-28 09:46 | P.PN_ITS ---
Subjective 2 Subjective: Patient is doing better. Sodium level has improved and is 124 today. Vitals/I&O/Wt Last Vital Signs Temp 98.1 F 05/28/23 07:29 Pulse 66 05/28/23 07:49 Resp 16 05/28/23 07:30 BP 114/69 05/28/23 07:29 Pulse Ox 98 05/28/23 07:30 O2 Del Method Nasal Cannula 05/28/23 07:30 O2 Flow Rate 2 05/28/23 08:00 05/27/23 05/28/23 05/28/23 22:59 06:59 14:59 Intake Total 300 / 300 480 / 480 Output Total 50 / 50 Balance 300 / 300 -50 / 250 480 / 480 Weight last 48 hrs Weight 125 lb 4 oz Weight 112 lb Weight 112 lb Physical Exam 2 Narrative: GENERAL: Patient is alert, awake and oriented x3. [] NECK: No jugular vein distension. [] HEENT: No cyanosis. No icterus. No pallor. [] HEART: Regular S1 and S2. No murmur, rub or gallop. [] LUNGS: Lungs are clear to auscultation CENTRAL NERVOUS SYSTEM: Grossly nonfocal. [] EXTREMITIES: Lower extremities with 1+ edema bilaterally Data 05/29/23 03:32 05/29/23 03:32 A&P Assessment and plan (1) Dyspnea on exertion: (2) Hypertension: (3) Congestive heart failure: Qualifiers: Heart failure type: other Qualified Code(s): I50.9 - Heart failure, unspecified (4) Acute hyponatremia: Plan Continue diuresis. Monitor renal function. Close I&O's. Sodium level is improving. Monitor that closely. Continue Eliquis and metoprolol. She is staying in normal sinus rhythm. Thank you for involving us with care of this patient. We will continue to follow. Please call with questions. Attestations 2 Medical Necessity Statement*: Care expected to cross 2 midnights. Coding Level of Care Code Acute Code for [facility] Fwd Diagnoses Dyspnea on exertion R06.09 Hypertension I10 Congestive heart failure I50.9 Heart failure type: other Acute hyponatremia E87.1
[2023-05-28 12:33] LABS: Sodium 126 mmol/L (136-145)
--- NOTE | 2023-05-28 12:42 | P.PN_ITS ---
Subjective 2 Subjective: Patient was seen this morning, she has no complaints of fevers, no chills, continues to complain of intermittent shortness of breath Vitals/I&O/Wt Last Vital Signs Temp 97.6 F 05/28/23 11:25 Pulse 57 L 05/28/23 11:25 Resp 17 05/28/23 11:25 BP 112/68 05/28/23 11:25 Pulse Ox 100 05/28/23 11:25 O2 Del Method Nasal Cannula 05/28/23 11:25 O2 Flow Rate 2 05/28/23 11:12 05/27/23 05/28/23 05/28/23 22:59 06:59 14:59 Intake Total 300 / 300 480 / 480 Output Total 50 / 50 Balance 300 / 300 -50 / 250 480 / 480 Weight last 48 hrs Weight 56.812 kg Weight 50.802 kg Weight 50.802 kg Physical Exam 2 Const: COMMON NORMALS: no acute distress and patient oriented x3 Resp: COMMON NORMALS: normal respiratory effort, No retractions, No use of accessory muscles and clear to auscultation bilaterally AUSCULTATION: clear to auscultation bilaterally Cardio: COMMON NORMALS: regular rate, regular rhythm, S1 normal heart sound present and S2 normal heart sound present RATE: regular rate RHYTHM: r egular rhythm HEART SOUNDS: S1 normal heart sound present and S2 normal heart sound present GI: COMMON NORMALS: Normal to inspection, nondistended, normoactive bowel sounds present and non-tender Extremity: COMMON NORMALS: no pedal edema Neuro: COMMON NORMALS: patient oriented x3 Psych: COMMON NORMALS: mental status grossly normal Data 05/28/23 04:10 05/28/23 11:33 Micro: Microbiology 05/28/23 00:42 Bacterial Antigens - Final Urine,Voided A&P Assessment and plan (1) Pneumonia: (2) Acute hyponatremia: (3) Dyspnea on exertion: (4) Hyperbilirubinemia: (5) Transaminitis: Plan Pneumonia, ? Currently on 2 L, ? Continue Rocephin?continue azithromycin, ? Sputum cultures collected?blood cultures, ? Monitor respiratory status closely ? CT angiogram of the chest CT/CT angio chest PE protcl [id number] IMPRESSION: 1. No evidence of pulmonary embolism. 2. Findings compatible with congestive failure. 3. Mild mediastinal lymphadenopathy. 4. Asymmetric right pleural calcifications and pleural thickening consistent with remote insult. 5. Small hiatal hernia with mural thickening distal thoracic esophagus. Hyponatremia, 126 ? Dehydration, diarrhea ? Could be from amiodarone, next?monitor serum sodiums every 4 hours Complains of dyspnea on exertion ? Is a smoker ? No formal diagnosis of COPD Fluid overload, 1 dose of Lasix today Hyperbilirubinemia, transaminitis, resolved Weight loss, fatigue, malaise, CT of the chest as above is a smoker, follow-up with pulmonary Atrial fibrillation, was in normal sinus rhythm continue Eliquis, continue metoprolol Attestations 2 Medical Necessity Statement*: Patient requires hospitalization for pneumonia, hyponatremia, fluid overload, dyspnea on exertion Diagnoses Pneumonia J18.9 Acute hyponatremia E87.1 Dyspnea on exertion R06.09 Hyperbilirubinemia E80.6 Transaminitis R74.01
[2023-05-28] MEDS: cefTRIAXone 1,000 MG in sodium chloride 0.9% (plus) 50 ML 100 MG IV (14:49)
[2023-05-28] MEDS: azithromycin 500 MG in sodium chloride 0.9% 250 ML 250 MG IV (14:49)
[2023-05-28] MEDS: nicotine 21 mg Patch 1 PATCH TRANSDERMA (14:49)
[2023-05-28 17:20] LABS: Sodium 126 mmol/L (136-145)
[2023-05-28] MEDS: metoprolol tartrate 50 mg Tablet PO (18:12)
[2023-05-28] MEDS: pantoprazole DR 40 mg Tablet PO (18:12)
[2023-05-28 20:57] LABS: Sodium 129 mmol/L (136-145)
[2023-05-29] VITALS (10 sets, daily range): BP systolic 111–124; BP diastolic 67–80; PULSE 59–77; RESP 16–18; TEMP 36.5–36.7; O2SAT 93–98
[2023-05-29 03:42] LABS: Basophils % 0.7 %; Eosinophils # 0.1 10^3/uL (0.0-0.8); Eosinophils % 2.3 %; Hematocrit 38.6 % (36-47); Lymphocytes # 2.1 10^3/uL (0.8-4.8); Lymphocytes % 35.6 %; Mean Corpuscular HGB Conc 35.2 g/dL (30-55); Mean Corpuscular Hemoglobin 32.6 pg (27-33); Mean Corpuscular Volume 92.6 fl (85-98); Mean Platelet Volume 10.2 fL (7.4-10.4); Monocytes # 0.7 10^3/uL (0.2-0.9); Monocytes % 12.2 %; Neutrophils # 2.92 10^3/uL (1.8-7.7); Nucleated Red Blood Cells % 0 %; Platelet Count 201 10^3/cmm (157-399); Red Blood Count 4.17 10^6/uL (3.85-5.65); Red Cell Distribution Width 11.6 % (12.1-15.1); White Blood Count 5.96 10^3/uL (3.29-11.43)
[2023-05-29 04:07] LABS: Alanine Aminotransferase 31 U/L (0-33); Alkaline Phosphatase 113 U/L (35-105); Anion Gap 14.3 (5-19); Aspartate Amino Transferase 30 U/L (0-32); Blood Urea Nitrogen 4 mg/dL (8-23); Calcium 9.1 mg/dL (8.5-10.5); Carbon Dioxide 29 mmol/L (22-29); Chloride 88 mmol/L (98-107); Globulin 2.6 g/dL (1.3-4.6); Glomerular Filtration Rate 162.8 mL/min (90-130); Glucose 98 mg/dL (65-115); Magnesium 1.4 mg/dL (1.7-2.3); Osmolality Calculated 263 mOsm/kg (285-295); Phosphorus 3.1 mg/dL (2.5-4.5); Potassium 3.3 mmol/L (3.5-5.1); Sodium 128 mmol/L (136-145); Total Bilirubin 0.9 mg/dL (0.15-1.2); Total Protein 6.6 g/dL (6.6-8.7)
[2023-05-29] MEDS: ipratropium-albuterol 3 mL Neb INHALATION ×2 (07:21→11:12)
[2023-05-29] MEDS: budesonide 0.5 mg/2 mL Neb INHALATION (07:21)
[2023-05-29] MEDS: metoprolol tartrate 50 mg Tablet 100 MG PO (08:03)
[2023-05-29] MEDS: pantoprazole DR 40 mg Tablet PO (08:03)
[2023-05-29] MEDS: apixaban 5 mg Tablet PO (08:03)
[2023-05-29] MEDS: nicotine 21 mg Patch 1 PATCH TRANSDERMA (08:03)
--- NOTE | 2023-05-29 08:24 | P.PN_ITS ---
Subjective 2 Subjective: Patient doing well. No chest pain. Vitals/I&O/Wt Last Vital Signs Temp 98.0 F 05/29/23 04:00 Pulse 66 05/29/23 07:54 Resp 18 05/29/23 07:54 BP 121/76 05/29/23 07:54 Pulse Ox 94 05/29/23 07:54 O2 Del Method Room Air 05/29/23 07:54 O2 Flow Rate 2 05/28/23 11:12 05/28/23 05/29/23 05/29/23 22:59 06:59 14:59 Intake Total 980 / 1940 Output Total 600 / 600 150 / 750 Balance 380 / 1340 -150 / 1190 Weight last 48 hrs Weight 123 lb 5 oz Weight 125 lb 4 oz Weight 112 lb Weight 112 lb Physical Exam 2 Narrative: GENERAL: Patient is alert, awake and oriented x3. [] NECK: No jugular vein distension. [] HEENT: No cyanosis. No icterus. No pallor. [] HEART: Regular S1 and S2. No murmur, rub or gallop. [] LUNGS: Lungs are clear to auscultation CENTRAL NERVOUS SYSTEM: Grossly nonfocal. [] EXTREMITIES: Lower extremities with 1+ edema bilaterally Data 05/29/23 03:32 05/29/23 03:32 Micro: Microbiology 05/28/23 00:42 Gram Stain - Final Sputum - Expectorated Sputum 05/28/23 00:42 Bacterial Antigens - Final Urine,Voided A&P Assessment and plan (1) Dyspnea on exertion: (2) Hypertension: (3) Congestive heart failure: Qualifiers: Heart failure type: other Qualified Code(s): I50.9 - Heart failure, unspecified (4) Acute hyponatremia: Plan Patient has improved significantly. Sodium level is improving as well. She can be discharged home on low-dose Lasix and Eliquis. Continue metoprolol. We will stop amiodarone. Thank you for involving us with care of this patient. Please call with questions. Attestations 2 Medical Necessity Statement*: Care expected to cross 2 midnights Coding Level of Care Code Acute Code for [facility] Fwd Diagnoses Dyspnea on exertion R06.09 Hypertension I10 Congestive heart failure I50.9 Heart failure type: other Acute hyponatremia E87.1
--- NOTE | 2023-05-29 10:04 | P.DS_ITS ---
Discharge Providers Date of Admission: 05/27/23 14:13 Date of Discharge: May 29, 2023 Attending Provider at Admission: Juan Lagos MD Attending Provider at Discharge: Juan Lagos MD Primary Care Provider: Liya Bonilla MD Diagnoses at Discharge Discharge Diagnosis (1) Dyspnea on exertion: Status: Acute (2) Hypertension: Status: Acute (3) Congestive heart failure: Status: Acute Qualifiers: Heart failure type: other Qualified Code(s): I50.9 - Heart failure, unspecified (4) Acute hyponatremia: Status: Acute Reason for Visit Reason for Visit: lethargic Hospital Course Hospital Course Elizabeth Avitia is a 58 year old female with a past medical history of smoking, no diagnosis of COPD, typically smokes a few cigarettes a day, diagnosis of atrial fibrillation on Eliquis, was planning on having a cardioversion, but was in normal sinus rhythm, due to her complaints of shortness of breath, fatigue, malaise she was directed to go to emergency room. Patient tells me for the last few months, she has been having fatigue, malaise, weight loss, shortness of breath at rest progressing to exertion. She tells her that now she needs a wheelchair to go and from her doctors appointments, normally she is able to walk, she just feels so fatigued and malaise. She has a nonproductive cough. No hemoptysis. No calf pain, no calf swelling. Denies any chest pain. She was diagnosed with atrial fibrillation a few months ago when they were doing a workup for her shortness of breath with exertion, she she denies any chest pain. Reports after taking amiodarone she started to have worsening fatigue, malaise, severe diarrhea she feels dehydrated Patient presented to [facility] for pneumonia, requiring broad- spectrum antibiotic therapy, overall clinically improved, discharged on 3 remaining days of Augmentin She did have hyponatremia during the hospitalization likely second to dehydration, diarrhea, amiodarone, serum sodium on discharge was 129 For dyspnea on exertion, likely from fluid overload received diuresis, discharged on Lasix 20 mg once daily with potassium replacement as outpatient She does have complaints of weight loss, fatigue, malaise, her CT of her chest did show mild mediastinal lymphadenopathy, asymmetric right pleural calcifications and pleural thickening, will have patient follow-up with pulmonary as outpatient Physical Exam Const: COMMON NORMALS: no acute distress and patient oriented x3 Resp: COMMON NORMALS: normal respiratory effort, No retractions, No use of accessory muscles and clear to auscultation bilaterally AUSCULTATION: clear to auscultation bilaterally Cardio: COMMON NORMALS: regular rate, regular rhythm, S1 normal heart sound present and S2 normal heart sound present RATE: regular rate RHYTHM: regular rhythm HEART SOUNDS: S1 normal heart sound present and S2 normal heart sound present GI: COMMON NORMALS: Normal to inspection, nondistended, normoactive bowel sounds present and non-tender Extremity: COMMON NORMALS: no pedal edema Neuro: COMMON NORMALS: patient oriented x3 Psych: COMMON NORMALS: mental status grossly normal Discharge Data Studies Completed and Pending Completed Studies During Hospitalization Category Date Time Status CT angio chest PE protcl [id number] Stat Cat Scan 05/27/23 15:33 Completed XR chest 1V portable [id number] Urgent Exams 05/27/23 12:18 Completed Pending at discharge Category Date Time Status Blood Cultures ([facility]) Routine Lab 05/27/23 14:32 Received Blood Cultures ([facility]) Routine Lab 05/27/23 14:32 Received Complete Blood Count w/Auto AM LABS Lab 05/30/23 04:00 Ordered Comprehensive Metabolic Panel AM LABS Lab 05/30/23 04:00 Ordered Magnesium AM LABS Lab 05/30/23 04:00 Ordered Phosphorus AM LABS Lab 05/30/23 04:00 Ordered Respiratory Panel 2 Routine Lab 05/27/23 14:04 Uncollected Sputum Culture and Gram Stain Stat Lab 05/28/23 00:42 Results Radiology Impressions Chest X-Ray 05/27/23 12:18 IMPRESSION: Interval appearance of new abnormalities. Constellation of findings suggests mild congestive failure and/or fluid overload with possible superimposed infectious/inflammatory pathology of the right lung base. Clinical correlation recommended. Chest CTA 05/27/23 15:33 IMPRESSION: 1. No evidence of pulmonary embolism. 2. Findings compatible with congestive failure. 3. Mild mediastinal lymphadenopathy. 4. Asymmetric right pleural calcifications and pleural thickening consistent with remote insult. 5. Small hiatal hernia with mural thickening distal thoracic esophagus. COMMENTS: In the absence of a history or active diagnosis of lung cancer, it is recommended that this patient with emphysema be evaluated for enrollment in a low dose CT lung cancer screening program. Laboratory Results WBC 5.96 10^3/uL (3.29-11.43) 05/29/23 03:32 RBC 4.17 10^6/uL (3.85-5.65) 05/29/23 03:32 Hgb 13.60 g/dL (11.27-16.99) 05/29/23 03:32 Hct 38.6 % (36-47) 05/29/23 03:32 MCV 92.6 fl (85-98) 05/29/23 03:32 MCH 32.6 pg (27-33) 05/29/23 03:32 MCHC 35.2 g/dL (30-55) 05/29/23 03:32 RDW 11.6 % (12.1-15.1) L 05/29/23 03:32 Plt Count 201 10^3/cmm (157-399) 05/29/23 03:32 MPV 10.2 fL (7.4-10.4) 05/29/23 03:32 Neut % (Auto) 49.0 % 05/29/23 03:32 Lymph % (Auto) 35.6 % 05/29/23 03:32 [place] % (Auto) 12.2 % 05/29/23 03:32 Eos % (Auto) 2.3 % 05/29/23 03:32 Baso % (Auto) 0.7 % 05/29/23 03:32 Neut # (Auto) 2.92 10^3/uL (1.8-7.7) 05/29/23 03:32 Lymph # (Auto) 2.1 10^3/uL (0.8-4.8) 05/29/23 03:32 [place] # (Auto) 0.7 10^3/uL (0.2-0.9) 05/29/23 03:32 Eos # (Auto) 0.1 10^3/uL (0.0-0.8) 05/29/23 03:32 Baso # (Auto) 0.0 10^3/uL (0.0-0.1) 05/29/23 03:32 Nucleated RBC % (auto) 0 % 05/29/23 03:32 Nucleated RBCs # 0.0 /100WBC 05/29/23 03:32 Sodium 128 mmol/L (136-145) L 05/29/23 03:32 Potassium 3.3 mmol/L (3.5-5.1) L 05/29/23 03:32 Chloride 88 mmol/L (98-107) L 05/29/23 03:32 Carbon Dioxide 29 mmol/L (22-29) 05/29/23 03:32 Anion Gap 14.3 (5-19) 05/29/23 03:32 BUN 4 mg/dL (8-23) L 05/29/23 03:32 Creatinine 0.4 mg/dL (0.5-0.9) L 05/29/23 03:32 GFR Calculation 162.8 mL/min (90-130) H 05/29/23 03:32 Glucose 98 mg/dL (65-115) 05/29/23 03:32 Estimat Average Glucose 103 05/27/23 12:35 Hemoglobin A1c 5.2 % (4.0-6.0) 05/27/23 12:35 Calculated Osmolality 263 mOsm/kg (285-295) L 05/29/23 03:32 Calcium 9.1 mg/dL (8.5-10.5) 05/29/23 03:32 Phosphorus 3.1 mg/dL (2.5-4.5) 05/29/23 03:32 Magnesium 1.4 mg/dL (1.7-2.3) L 05/29/23 03:32 Total Bilirubin 0.9 mg/dL (0.15-1.2) 05/29/23 03:32 AST 30 U/L (0-32) 05/29/23 03:32 ALT 31 U/L (0-33) 05/29/23 03:32 Alkaline Phosphatase 113 U/L (35-105) H 05/29/23 03:32 Troponin T Baseline 8 ng/L (0-10) 05/27/23 12:35 Troponin T 120 Minute 8.98 ng/L (0-10) 05/27/23 14:32 Delta Troponin T 0.98 ABS# (0-10) 05/27/23 14:32 Troponin T Hi Sens 6Hr 12.05 ng/L (0-10) H 05/27/23 18:33 Troponin T Hi Sens 6Hr Delta 4.05 ng/L (0-12) 05/27/23 18:33 C-Reactive Protein 3.0 mg/L (0.0-4.9) 05/27/23 12:35 NT-Pro-B Natriuret Pep 1397 pg/mL (0-125) H 05/27/23 12:35 NT-Pro-B Natriuret Pep 1437 pg/mL (0-125) H 05/27/23 12:35 NT-Pro-B Natriuret Pep 1454 pg/mL (0-125) H 05/27/23 12:35 Total Protein 6.6 g/dL (6.6-8.7) 05/29/23 03:32 Albumin 4.0 g/dL (3.5-5.2) 05/29/23 03:32 Globulin 2.6 g/dL (1.3-4.6) 05/29/23 03:32 Triglycerides 54 mg/dL (0-150) 05/27/23 16:56 Cholesterol 128 mg/dL (0-200) 05/27/23 16:56 LDL Cholesterol, Calc 65 mg/dL (50-129) 05/27/23 16:56 HDL Cholesterol 52 mg/dL (60-100) L 05/27/23 16:56 LDL/HDL Ratio 1.25 RATIO (0.00-3.22) 05/27/23 16:56 Cholesterol/HDL Ratio 2.46 mg/dL (0.0-4.40) 05/27/23 16:56 Procalcitonin 0.02 ng/mL (0-0.5) 05/27/23 12:35 TSH 5.56 uIU/mL (0.27-4.20) H 05/27/23 16:56 Urine Color Dark yellow (Yellow) 05/28/23 00:42 Urine Appearance Clear (CLEAR) 05/28/23 00:42 Urine pH 6 (5-7) 05/28/23 00:42 Ur Specific Outlook 1.005 (1.005-1.030) 05/28/23 00:42 Urine Protein Neg (Negative) 05/28/23 00:42 Urine Glucose (UA) Norm (Normal) 05/28/23 00:42 Urine Ketones Negative (Negative) 05/28/23 00:42 Urine Blood Neg (Negative) 05/28/23 00:42 Urine Nitrate Negative (Negative) 05/28/23 00:42 Urine Bilirubin Neg (Negative) 05/28/23 00:42 Urine Urobilinogen Norm mg/dL (Negative) 05/28/23 00:42 Ur Leukocyte Esterase Negative (Negative) 05/28/23 00:42 Vitals Last Vital Signs Temp 98.0 F 05/29/23 04:00 Pulse 66 05/29/23 08:00 Resp 18 05/29/23 08:00 BP 121/76 05/29/23 08:00 Pulse Ox 94 05/29/23 07:54 O2 Del Method Room Air 05/29/23 07:54 O2 Flow Rate 2 05/28/23 11:12 Discharge Plan Discharge Patient Disposition: Home Condition: Stable Prescriptions: New amoxicillin-pot clavulanate 875-125 mg tablet 1 tab PO BID 3 Days Qty: 6 0RF furosemide [Lasix] 20 mg tablet 20 mg PO DAILY 30 Days Qty: 30 0RF potassium chloride [Klor-Con M20] 20 mEq tablet,ER particles/crystals 20 meq PO DAILY 30 Days Qty: 30 0RF Continued metoprolol tartrate 100 mg tablet 100 mg PO DIRECTED Rx Instructions: Take 100mg (1 tab) in the AM and 50mg (1/2 tab) in the PM Eliquis 5 mg tablet 5 mg PO BID Qty: 90 3RF Discontinued amiodarone 400 mg tablet 400 mg PO DAILY Qty: 90 3RF Rx Instructions: Take 400mg twice daily for 7 days, then take 400mg daily amlodipine 5 mg tablet 5 mg PO DAILY Discharge Orders: Discharge Order (Routine); Ordered 05/29/23 Ordered By: Juan Lagos Referrals: Liya Bonilla MD [Primary Care Provider] - (Please call Your Primary care doctor at [phone] to set up a follow up to be seen in one week. ) LyndseyrValentin MD [Physician] - 1 week (We have notified your physician's clinic of the need for a follow-up appointment to be scheduled. If you have not heard from them within the next 2 business days, please call them directly. ) Discharge Diet: Cardiac Discharge Activity: Resume usual activity Patient Instructions: Opioid Safety Discharge Attestations Time Spent in Discharge Care*: greater than 30 min Quality Metrics Clinical Quality Measures [ No reported AMI, CVA or VTE this stay] Coding Level of Care Code 36078 Total time (in minutes) for Discharge: 45 Diagnoses Dyspnea on exertion R06.09 Hypertension I10 Congestive heart failure I50.9 Heart failure type: other Acute hyponatremia E87.1
[2023-05-29] MEDS: potassium chloride ER 20 mEq Tablet 40 MEQ PO (10:09)
[2023-05-29] MEDS: FUROsemide 20 mg Tablet PO (10:10)
[2023-05-29] MEDS: azithromycin 250 MG in sodium chloride 0.9% 250 ML IV (11:33)
[2023-05-29] MEDS: cefTRIAXone 1,000 MG in sodium chloride 0.9% (plus) 50 ML 100 MG IV (11:34)
[2023-05-29] MEDS: water for injection-sterile 10 ML 2.8 ML (11:37)
--- NOTE | 2023-05-29 11:57 | PC.NURSE ---
Discharge instructions went over with patient and all questions answered. Education provided on Furosemide, Potassium Chloride ER, and amoxicillin tablets sent home with patient to be taken tomorrow since she will not be able to pick her prescriptions up till Tuesday. Patient verbalized understanding.
== END 2023-05-29 12:51 | disposition home or self-care (01) | DRG 194 ==
LOC: ER 14:12 → MEDSURG 16:19
PROVIDERS: Admitting Provider Family Medicine; Emergency Provider Physician Assistant; PCP Family Medicine; Visit Provider Family Medicine
DX: J18.9 Pneumonia, unspecified organism (principal); E87.1 Hypo-osmolality and hyponatremia; I48.20 Chronic atrial fibrillation, unspecified; Z79.01 Long term (current) use of anticoagulants; F17.210 Nicotine dependence, cigarettes, uncomplicated; I11.0 Hypertensive heart disease with heart failure; I50.9 Heart failure, unspecified; E86.0 Dehydration; R19.7 Diarrhea, unspecified; R74.01 Elevation of levels of liver transaminase levels
CPT/HCPCS: 36415; 71045; 71275; 80053; 80061; 81003; 83036; 83735; 83880; 84100; 84145; 84295; 84443; 84484; 85025; 86140; 86403; 87040; 87070; 87205; 93005; 94640; 96365; 96367; 99285; C9113; J0456; J0696; J1940; J7050; J7626; Q9967

== ENCOUNTER 2023-06-23 10:19 | Emergency (ER) | payer MEDICAID, SELFPAY ==
[2023-06-23 10:25] VITALS: BP 128/71; PULSE 78; RESP 18; TEMP 36.4; O2SAT 90; BMI 17.2
--- NOTE | 2023-06-23 10:33 | ED_ITS ---
HPI - SOB/Dyspnea 2 General: Chief Complaint: Shortness of Breath/Dyspnea Stated Complaint: sent from dr king Time Seen by Provider: 06/23/23 10:25 History of Present Illness: HPI Narrative: 58-year-old female presents emergency de partment from her primary care physician's office. She states she has recently been hospitalized and was discharged on 05/29/2023 after being treated for pneumonia. She states she has a history of COPD and she is continued to have a wet sounding cough. She states she was seen at her primary care provider's office today and became concerned with her increased shortness of breath on exertion. I evaluated the patient here in the emergency department and she does appear to be requiring supplemental oxygen at 2 L nasal cannula to maintain her oxygen saturations. She denies chest pain dizziness or lightheaded feeling. Her primary care provider Dr. King did report that her oxygen saturation in the office today was 68% upon arrival and with rest improved on room air to approximately 84%. Dr. King stated that they placed the patient on supplemental oxygen and had improvement to 97% on 2 L nasal cannula. She presents directly from her primary care provider's office for additional evaluation. Review of Systems 2 General: Reports: 10 or more systems reviewed and unremarkable except in HPI and below Resp: Reports: dyspnea, productive cough and wheezing PFSH ED 2 PFSH: Medical History History of atrial fibrillation Surgical History No pertinent past surgical history Social History Smoking and tobacco/nicotine status: current some day tobacco/nicotine user Alcohol intake: never Substance/Drug Use: never Physical Exam 2 Narrative: EXAM NARRATIVE: Constitutional: the patient appears well nourished and with normal development. Vital signs reviewed as documented. HENMT: Normocephalic, atraumatic. External ears normal appearance without drainage. Nose without drainage, normal appearance. Mucus membranes moist. Neck is supple, No jugular venous distension, trachea is midline, no appreciable carotid bruits. No lymphadenopathy. No meningeal signs. Flexion, extension and lateral rotation is without pain. Eyes: Pupils are equal, round, reactive to light and accommodation. No scleral icterus. Extra-ocular movement are intact. Thorax is symmetrical and with equal rise and fall with respirations. Resp: Bilateral expiratory wheezes, coarse breath sounds to the mid and lower right. Increased work of breathing noted. Cardio: Regular rate and rhythm. Positive S1, S2. No appreciable murmurs, rubs or gallops. GI: Abdominal exam reveals normal bowel sounds to all quadrants. No organomegaly. No obvious palpable masses noted. No hepatomegally appreciated. Soft, non-tender to palpation. Extremity: Extremities are non-edematous and both femoral and pedal pulses are 2+ and equal bilaterally. Moves all extremities well, sensation in all extremities. Neuro: Alert and oriented x4, person, place, time and situation. Cranial nerves II through XII are grossly intact, there is no focal neurological deficits that I can appreciate at present. Motor strength in the upper and lower extremities are equal and bilateral 5/5. Psych: Cooperative, calm, normal thought process, appropriate judgment. Skin: No lesions, rashes. No gross abnormalities noted. Back: Symmetrical, no obvious deformity, No CVA tenderness Course 2 Vital Signs: Vital signs: Vital Signs Temperature 97.6 F 06/23/23 10:25 Pulse Rate 78 06/23/23 12:55 Respiratory Rate 16 06/23/23 10:59 Blood Pressure 91/65 06/23/23 12:55 Pulse Oximetry 96 06/23/23 12:55 Oxygen Delivery Me thod Nasal Cannula 06/23/23 12:30 Oxygen Flow Rate 2 06/23/23 12:30 MDM - SOB/Dyspnea Medical Decision Making Physical exam completed and documented I will obtain a two-view chest x-ray as well as repeat laboratory evaluation and contact the patient's primary care physician to advise her of the arterial blood gas and hyponatremia that is noted. I did speak with the patient's primary care provider Dr. King and advised her of the radiographic and laboratory findings I will provide the patient with additional outpatient antibiotics and Dr. King said that her office would set the patient up with home supplemental oxygen. It was in agreement that we would discharge the patient she would follow-up with Dr. King as advised. Medical Records I reviewed the patient's medical records. Lab Data I reviewed the patient's lab results. 06/23/23 10:49 06/23/23 10:49 Labs/Radiology: Laboratory Results WBC 12.17 10^3/uL (3.29-11.43) H 06/23/23 10:49 RBC 4.79 10^6/uL (3.85-5.65) 06/23/23 10:49 Hgb 15.90 g/dL (11.27-16.99) 06/23/23 10:49 Hct 44.1 % (36-47) 06/23/23 10:49 MCV 92.1 fl (85-98) 06/23/23 10:49 MCH 33.2 pg (27-33) H 06/23/23 10:49 MCHC 36.1 g/dL (30-55) 06/23/23 10:49 RDW 11.7 % (12.1-15.1) L 06/23/23 10:49 Plt Count 475 10^3/cmm (157-399) H 06/23/23 10:49 MPV 8.9 fL (7.4-10.4) 06/23/23 10:49 Neut % (Auto) 71.8 % 06/23/23 10:49 Lymph % (Auto) 12.5 % 06/23/23 10:49 [place] % (Auto) 14.6 % 06/23/23 10:49 Eos % (Auto) 0.0 % 06/23/23 10:49 Baso % (Auto) 0.7 % 06/23/23 10:49 Neut # (Auto) 8.74 10^3/uL (1.8-7.7) H 06/23/23 10:49 Lymph # (Auto) 1.5 10^3/uL (0.8-4.8) 06/23/23 10:49 [place] # (Auto) 1.8 10^3/uL (0.2-0.9) H 06/23/23 10:49 Eos # (Auto) 0.0 10^3/uL (0.0-0.8) 06/23/23 10:49 Baso # (Auto) 0.1 10^3/uL (0.0-0.1) 06/23/23 10:49 Nucleated RBC % (auto) 0 % 06/23/23 10:49 Nucleated RBCs # 0.0 /100WBC 06/23/23 10:49 Specimen Type Arterial 06/23/23 10:40 Sample Site Radial, left 06/23/23 10:40 ABG pH 7.47 (7.35-7.45) H 06/23/23 10:40 ABG pCO2 37.9 mmHg (35-45) 06/23/23 10:40 ABG pO2 65.6 mmHg (80.0-100.0) L 06/23/23 10:40 ABG HCO3 27.6 mmol/L (22-26) H 06/23/23 10:40 ABG O2 Saturation 94.5 06/23/23 10:40 ABG Base Excess 3.9 mmol/L (-2.0-2.0) H 06/23/23 10:40 Tello Test Pos 06/23/23 10:40 A-a O2 Gradient 4.8 mmHg (5-10) L 06/23/23 10:40 Hematocrit 47.1 % (37-47) H 06/23/23 10:40 Hgb O2 Saturation 92.5 % (95-100) L 06/23/23 10:40 Carboxyhemoglobin 1.6 %THgb (0.4-20.1) 06/23/23 10:40 Methemoglobin 0.4 % (0.4-1.5) 06/23/23 10:40 Total Hemoglobin 15.4 g/dL (12-16) 06/23/23 10:40 Sodium 127.0 mmol/L (131-143) L 06/23/23 10:40 Potassium 3.9 mmol/L (3.5-5.0) 06/23/23 10:40 Glucose 122.0 mg/dL (70-115) H 06/23/23 10:40 Ionized Calcium 1.2 mmol/L (1.1-1.4) 06/23/23 10:40 O2 Delivery Device Nc 06/23/23 10:40 O2 Liters/Min 2.0 % 06/23/23 10:40 Ground Operations Superintendent ID [place] 06/23/23 10:40 Sodium 126 mmol/L (136-145) L 06/23/23 10:49 Potassium 4.4 mmol/L (3.5-5.1) 06/23/23 10:49 Chloride 87 mmol/L (98-107) L 06/23/23 10:49 Carbon Dioxide 28 mmol/L (22-29) 06/23/23 10:49 Anion Gap 15.4 (5-19) 06/23/23 10:49 BUN 3 mg/dL (8-23) L 06/23/23 10:49 Creatinine 0.4 mg/dL (0.5-0.9) L 06/23/23 10:49 GFR Calculation 162.8 mL/min (90-130) H 06/23/23 10:49 Glucose 121 mg/dL (65-115) H 06/23/23 10:49 Calculated Osmolality 260 mOsm/kg (285-295) L 06/23/23 10:49 Calcium 9.2 mg/dL (8.5-10.5) 06/23/23 10:49 Total Bilirubin 1.0 mg/dL (0.15-1.2) 06/23/23 10:49 AST 18 U/L (0-32) 06/23/23 10:49 ALT 18 U/L (0-33) 06/23/23 10:49 Alkaline Phosphatase 113 U/L (35-105) H 06/23/23 10:49 Total Protein 7.4 g/dL (6.6-8.7) 06/23/23 10:49 Albumin 3.7 g/dL (3.5-5.2) 06/23/23 10:49 Globulin 3.7 g/dL (1.3-4.6) 06/23/23 10:49 All radiology interpretation(s) finalized by discharge Discharge Plan Discharge Patient Disposition: Home Clinical Impression: Hypoxemia Community acquired pneumonia Qualifiers: Laterality: right Lung location: lower lobe of lung Qualified Code(s): J18.9 - Pneumonia, unspecified organism COPD (chronic obstructive pulmonary disease) Qualifiers: Emphysema type: unspecified Condition: Stable Prescriptions: New levofloxacin 750 mg tablet 750 mg PO DAILY 7 Days Qty: 7 0RF benzonatate 200 mg capsule 200 mg PO TID Qty: 30 0RF No Action metoprolol tartrate 100 mg tablet 100 mg PO DIRECTED Rx Instructions: Take 100mg (1 tab) in the AM and 50mg (1/2 tab) in the PM Eliquis 5 mg tablet 5 mg PO BID Qty: 90 3RF furosemide [Lasix] 20 mg tablet 20 mg PO DAILY 30 Days Qty: 30 0RF potassium chloride [Klor-Con M20] 20 mEq tablet,ER particles/crystals 20 meq PO DAILY 30 Days Qty: 30 0RF amlodipine 5 mg tablet 5 mg PO DAILY Discharge Orders: Discharge ED (Routine); Ordered 06/23/23 Ordered By: Jasiel Cruz Referrals: Liya King MD [Primary Care Provider] - Discharge Diet: Advance as tolerated Discharge Activity: Resume usual activity Patient Instructions: Opioid Safety, Pain Management Activity Restrictions/Additional Instructions: Activity Restrictions/Additional Instructions: [facility]. Please realize that you were seen in the Emergency Department and that we are providing you with an emergency medical screening exam and this may not be a complete and all inclusive of all the testing and or medical work-up that you may need to determine your ailment or severity of your illness. It is very important that you follow-up as instructed with your Primary care provider or Specialist for additional evaluation and to discuss your medical treatment plan. You may return to the Emergency Department should you have concerns or if your condition changes or worsens in any way. Coding Level of Care Code ED Winch Driver for Leanna Rodriguez
--- NOTE | 2023-06-23 10:33 | XR_ITS ---
WS: [id number] Exam: XR chest 2V* [id number] Date/Time of Exam: 06/23/2023 10:47 AM Reason For Exam: Dyspnea/cough Comparison 05/27/2023. Residual lung infiltrate and atelectasis in the middle and lower RIGHT lung since prior study. There is been significant improvement since the last exam. RIGHT basal pleural effusion noted also signific antly improved. The LEFT lung is clear. No pneumothorax. Heart size top limits normal. The mediastinu m is normal in contour. Bony structures are intact. Fusion hardware in the lower C-spine. IMPRESSION: 1. Residual infiltrate and/or chronic change in the RIGHT lower lung zone with mild atelectatic veras es. There has been significant improvement since the last study. 2. Small RIGHT basal pleural effusion also significantly improved.
[2023-06-23 10:52] LABS: ABG PCO2 37.9 mmHg (35-45); ABG PH Result 7.47 (7.35-7.45); Alveolar-Arterial Oxygen Gradi 4.8 mmHg (5-10); Arterial Blood Gas Hematocrit 47.1 % (37-47); Base Excess ABG 3.9 mmol/L (-2.0-2.0); Blood Gas Allen Test Pos; Blood Gas Operator Identificat WALCI; Blood Gas Sample Site Radial, left; Blood Gas Sample Type Arterial; Carboxyhemoglobin 1.6 %THgb (0.4-20.1); HCO3 ABG 27.6 mmol/L (22-26); HGB O2 Sat 92.5 % (95-100); Ionized Calcium Level - ABG 1.2 mmol/L (1.1-1.4); Methemoglobin 0.4 % (0.4-1.5); Oxygen Device NC; Oxygen Saturation ABG 94.5; PO2 ABG 65.6 mmHg (80.0-100.0); Potassium Level - ABG 3.9 mmol/L (3.5-5.0); Total Hemoglobin 15.4 g/dL (12-16)
[2023-06-23 10:59] VITALS: PULSE 83; RESP 16; O2SAT 94
[2023-06-23] MEDS: ipratropium-albuterol 3 mL Neb INHALATION (10:59)
[2023-06-23 11:01] LABS: Basophils # 0.1 10^3/uL (0.0-0.1); Basophils % 0.7 %; Hematocrit 44.1 % (36-47); Lymphocytes # 1.5 10^3/uL (0.8-4.8); Lymphocytes % 12.5 %; Mean Corpuscular HGB Conc 36.1 g/dL (30-55); Mean Corpuscular Hemoglobin 33.2 pg (27-33); Mean Corpuscular Volume 92.1 fl (85-98); Mean Platelet Volume 8.9 fL (7.4-10.4); Monocytes # 1.8 10^3/uL (0.2-0.9); Monocytes % 14.6 %; Neutrophils # 8.74 10^3/uL (1.8-7.7); Neutrophils % 71.8 %; Nucleated Red Blood Cells % 0 %; Platelet Count 475 10^3/cmm (157-399); Red Blood Count 4.79 10^6/uL (3.85-5.65); Red Cell Distribution Width 11.7 % (12.1-15.1); White Blood Count 12.17 10^3/uL (3.29-11.43)
[2023-06-23 11:05] VITALS: PULSE 80
[2023-06-23 11:17] LABS: Alanine Aminotransferase 18 U/L (0-33); Albumin Level 3.7 g/dL (3.5-5.2); Alkaline Phosphatase 113 U/L (35-105); Anion Gap 15.4 (5-19); Aspartate Amino Transferase 18 U/L (0-32); Blood Urea Nitrogen 3 mg/dL (8-23); Calcium 9.2 mg/dL (8.5-10.5); Carbon Dioxide 28 mmol/L (22-29); Chloride 87 mmol/L (98-107); Creatinine Clr Calc Pharmacy 114.5942; Globulin 3.7 g/dL (1.3-4.6); Glomerular Filtration Rate 162.8 mL/min (90-130); Glucose 121 mg/dL (65-115); Osmolality Calculated 260 mOsm/kg (285-295); Potassium 4.4 mmol/L (3.5-5.1); Sodium 126 mmol/L (136-145); Total Protein 7.4 g/dL (6.6-8.7)
[2023-06-23 12:00] VITALS: BP 114/70; PULSE 81; O2SAT 94
[2023-06-23 12:30] VITALS: BP 108/65; PULSE 77; O2SAT 97
[2023-06-23 12:55] VITALS: BP 91/65; PULSE 78; O2SAT 96
== END 2023-06-23 12:56 | disposition home or self-care (01) ==
PROVIDERS: Emergency Provider Internal Medicine; PCP Family Medicine
DX: J18.9 Pneumonia, unspecified organism (principal); J44.9 Chronic obstructive pulmonary disease, unspecified; Z99.81 Dependence on supplemental oxygen; R09.02 Hypoxemia; F17.200 Nicotine dependence, unspecified, uncomplicated
CPT/HCPCS: 36600; 71046; 80051; 80053; 82330; 82805; 85025; 94640; 99284

== ENCOUNTER 2024-05-31 11:16 | Outpatient (CLI) | payer MEDICAID, SELFPAY ==
--- NOTE | 2024-05-31 11:20 | MM_ITS ---
WS: [id number] BILATERAL SCREENING DIGITAL TOMOSYNTHESIS MAMMOGRAM WITH CAD HISTORY: SCREENING COMPARISON: 04/01/2023, 03/10/2022, 11/23/2019 Bilateral CC and MLO views with tomosynthesis and synthetic mammography submitted. Computer aided det ection analyzed. Breast composition: The breasts are heterogeneously dense, which may obscure small masses. No suspici ous masses, microcalcifications or architectural distortion. Moderate bilateral breast arterial calci fications. MM/MM scr BI tomosynthesis [id number] IMPRESSION: BI-RADS: 2 - Benign FOLLOW UP: 1 Year Follow-up
== END 2024-05-31 11:17 | disposition home or self-care (01) ==
LOC: MOBLMAM 11:18
PROVIDERS: PCP Family Medicine; Visit Provider Family Medicine
DX: Z12.31 Encounter for screening mammogram for malignant neoplasm of breast (principal); R92.333 Mammographic heterogeneous density, bilateral breasts; R92.1 Mammographic calcification found on diagnostic imaging of breast
CPT/HCPCS: 77063; 77067

== ENCOUNTER → 2024-06-26 15:39 | Outpatient (BNVA) | payer MEDICAID, SELFPAY | PROVIDERS: PCP Family Medicine; Referring Provider Family Medicine; Visit Provider Obstetrics & Gynecology | DX: Z01.419 Encounter for gynecological examination (general) (routine) without abnormal findings (principal) | CPT/HCPCS: 87624 ==

== ENCOUNTER → 2024-07-05 12:22 | Outpatient (BNVA) | payer MEDICAID, SELFPAY | PROVIDERS: PCP Family Medicine; Visit Provider Obstetrics & Gynecology | DX: N94.10 Unspecified dyspareunia (principal) | CPT/HCPCS: 76830 ==

== ENCOUNTER 2024-08-01 13:25 | Outpatient (CLI) | payer MEDICAID, SELFPAY ==
--- NOTE | 2024-08-01 13:30 | USCV_ITS ---
Elizabeth Avitia Age: 59 Gender: F : 1965 Exam Date: 08/01/2024 13:54 Ordering Phys: Elio Mendez M.D ([email or web address]) Technologist: ANGELICA Exam Location: [facility] [place] Indication: mr BP: 120 / 80 HR: 78 Rhythm: Sinus Technical Quality: Adequate MEASUREMENTS (Male / Female) Normal Values 2D ECHO LV Diastolic Diameter PLAX 3.7 cm 4.2 - 5.9 / 3.9 - 5.3 cm IVS Diastolic Thickness 0.9 cm 0.6 - 1.0 / 0.6 - 0.9 cm IVS Systolic Thickness 1.6 cm LVPW Diastolic Thickness 0.9 cm 0.6 - 1.0 / 0.6 - 0.9 cm LVPW Systolic Thickness 2.1 cm LVOT Diameter 1.7 cm LV Ejection Fraction 2D Teich 70.8 % LV Ejection Fraction MOD 4C 71.5 % LV Ejection Fraction MOD 2C 75.8 % LV Ejection Fraction 2C AL 76.4 % LA Diameter 3.1 cm RA Systolic Volume 4C AL 35.8 ml RA Systolic Volume 4C MOD 36.5 ml LA Sys Volume AL 34.0 cm cubed LA Sys Volume Index AL 21.1 cm cubed/m squared Aorta at Sinotubular Diameter 2.5 cm IVC Diameter 1.4 cm M-MODE LA Ao Ratio MM 1.3 AV Cusp Separation MM 1.2 cm DOPPLER AV Peak Velocity 125.0 cm/s LVOT Peak Velocity 94.0 cm/s AV Area Cont Eq vti 1.6 cm squared AV Area Cont Eq pk 1.8 cm squared MV Peak Velocity 145.0 cm/s MV Area PHT 4.4 cm squared Mitral E to A Ratio 2.6 TV Peak Velocity 280.0 cm/s TR Peak Velocity 322.0 cm/s TR Peak Gradient 41.5 mmHg TV Peak E Velocity 96.0 cm/s PV Peak Velocity 91.0 cm/s FINDINGS Left Ventricle LV systolic function is normal with EF of 60-65%. No regional wall motion abnormalities. Right Ventricle Normal in size and function Right Atrium Normal in size Left Atrium Normal in size Mitral Valve Mitral valve is thickened. Moderate mitral regurgitation. Aortic Valve Structurally normal aortic valve. No significant stenosis Tricuspid Valve Mild tricuspid regurgitation. RVSP is 40-45mmHg. This is consistent with mild pulmonary hypertension. Pulmonic Valve Not well visualized Pericardium Normal Aorta Normal in size IVC Appears to be normal CONCLUSIONS LV systolic function is normal with EF of 60-65%. Moderate mitral regurgitation Mild tricuspid regurgitation Mild pulmonary hypertension Elio Mendez MD (Electronically Signed) Final Date: 11 August 2024 21:53 S
== END 2024-08-01 13:26 | disposition home or self-care (01) ==
PROVIDERS: PCP Family Medicine; Visit Provider Internal Medicine
DX: I34.0 Nonrheumatic mitral (valve) insufficiency (principal); I07.1 Rheumatic tricuspid insufficiency; I27.20 Pulmonary hypertension, unspecified
CPT/HCPCS: 93306

== ENCOUNTER 2024-10-23 05:52 | Day surgery (SDC) | payer MEDICAID, SELFPAY ==
[2024-10-23] VITALS (8 sets, daily range): BP systolic 133–145; BP diastolic 65–83; PULSE 82–88; RESP 15–17; TEMP 36.4–36.7; O2SAT 92–99; BMI 19.3
--- NOTE | 2024-10-23 00:49 | W.PM.OPSFHP ---
Same Day Surgery H&P Indication for Procedure/HPI DATE OF PROCEDURE: October 23, 2024 CHIEF COMPLAINT/INDICATIONFOR SURGICAL PROCEDURE: abnormal uterine bleeding PREOP DIAGNOSIS: abnormal uterine bleeding; thickened endometrium on ultrasound PLANNED PROCEDURE: Operation Date: 10/23/24 07:00 Proposed Procedures p Hysteroscopy w/ Endometrial Sampling 00857 N94.10 R93.89(Not Applicable) - Mu Morris MD s POSSIBLE Endometrial Polypectomy(Not Applicable) - Mu Morris MD Medications/Allergies* Home Medications ?Medication ?Instructions ?Recorded ?Confirmed ?Type amlodipine 5 mg tablet 5 mg PO DAILY 06/23/23 10/22/24 History furosemide 20 mg tablet 20 mg PO DAILY 07/19/23 10/22/24 History potassium chloride 8 mEq 8 meq PO BID 07/19/23 10/22/24 History tablet,extended release venlafaxine 37.5 mg 37.5 mg PO DAILY 06/26/24 10/22/24 History capsule,extended release 24 hr apixaban 5 mg tablet (Eliquis) 5 mg PO BID 10/22/24 10/22/24 History estradiol 1 mg tablet 1 mg PO DAILY 10/22/24 10/22/24 History medroxyprogesterone 2.5 mg tablet 2.5 mg PO DAILY 10/22/24 10/22/24 History Allergies/Adverse Reactions Allergy/AdvReac Type Severity Reaction Status Date / Time No Known Allergies Allergy Verified 09/19/24 14:05 Pertinent History/Comorbid Conditions* Medical History (Updated 08/21/24 @ 09:37 by Mu Morris MD) History of atrial fibrillation Surgical History (Updated 05/27/23 @ 15:38 by Juan Lagos MD) No pertinent past surgical history Social History Smoking and tobacco/nicotine status: former use of tobacco/nicotine Alcohol intake: never Substance/Drug Use: never Pertinent Exam Findings alert, oriented x 3, clear to auscultation bilaterally and regular rate & rhythm Pertinent Data Pap 06-26-24 NILM Pelvic sono 07-05-24 normal-sized uterus Endometrium 1.2 cm Normal ovaries Recommendations Surgery/Procedure today Coding Level of Care Code Acute Code for Chg Fwd
--- NOTE | 2024-10-23 06:18 | ANES.PREANE2 ---
Pre-Anesthetic Assessment Height/Weight: Height 5 ft 6 in Weight 120 lb Temp Pulse Resp BP Pulse Ox O2 Del Method 98.1 F 88 17 145/82 98 Room Air 10/23/24 06:02 10/23/24 06:02 10/23/24 06:02 10/23/24 06:02 10/23/24 06:02 10/23/24 06:07 Preop Diagnosis: thickened endometrium on ultrasound Operation Date: 10/23/24 07:00 Proposed Procedures p Hysteroscopy w/ Endometrial Sampling 16532 N94.10 R93.89(Not Applicable) - Mu Morris MD s POSSIBLE Endometrial Polypectomy(Not Applicable) - Mu Morris MD Was Beta Emperatriz taken within 24 hours: Yes Was Clonidine taken within 24 hours: N/A Last intake: Intake Last Liquid Date 10/22/24 Last Liquid Time 23:00 Last Solid Date 10/22/24 Last Solid Time 17:30 Social No alcohol and No tobacco Exam alert, oriented x 3 and regular rate & rhythm Airway Submandibular: within normal limits Cervical ROM: within normal limits Mallampati: Class II Comments: Comments: Few missing teeth, denies any loose Anesthetic Plan ASA status: 3 Anesthesia: General Other: No prior issues with anesthesia NPO since yesterday evening History of hypertension on amlodipine and metoprolol. Preop BP 145/82 On Eliquis for chronic A-fib. Last taken 10/19/2024 Recent echo performed showing EF of 60-65% Quit smoking in 2022 Plan for general anesthesia Medications/Allergies Home Medications ?Medication ?Instructions ?Recorded ?Confirmed ?Last Taken ?Type amlodipine 5 mg tablet 5 mg PO DAILY 06/23/23 10/22/24 10/22/24 History furosemide 20 mg tablet 20 mg PO DAILY 07/19/23 10/22/24 10/22/24 History potassium chloride 8 mEq 8 meq PO BID 07/19/23 10/22/24 10/22/24 History tablet,extended release metoprolol tartrate 100 mg tablet 100 mg PO DIRECTED #135 tabs 04/16/24 10/22/24 10/22/24 Rx venlafaxine 37.5 mg 37.5 mg PO DAILY 06/26/24 10/22/24 10/22/24 History capsule,extended release 24 hr apixaban 5 mg tablet (Eliquis) 5 mg PO BID 10/22/24 10/22/24 10/19/24 History estradiol 1 mg tablet 1 mg PO DAILY 10/22/24 10/22/24 10/22/24 History medroxyprogesterone 2.5 mg tablet 2.5 mg PO DAILY 10/22/24 10/22/24 10/22/24 History Allergies Allergy/AdvReac Type Severity Reaction Status Date / Time No Known Allergies Allergy Verified 09/19/24 14:05 [facility] Anesthesia Medical History History of atrial fibrillation Surgical History (Updated 10/22/24 @ 13:53 by Stacey Jules RN) No pertinent past surgical history Social History Smoking and tobacco/nicotine status: former use of tobacco/nicotine Alcohol intake: never Substance/Drug Use: never Data Anesthesia Cardiac Studies: Echocardiogram 08/01/24 Cardiac Event Monitor 02/22/23
[2024-10-23] MEDS: sodium chloride 0.9% 1,000 ML 30 ML IV (06:24)
[2024-10-23 06:46] LABS: Anion Gap 14.9 (5-19); Blood Urea Nitrogen 5 mg/dL (8-23); Carbon Dioxide 27 mmol/L (22-29); Chloride 95 mmol/L (98-107); Creatinine Clr Calc Pharmacy 133.7227; Glomerular Filtration Rate 162.3 mL/min (90-130); Glucose 89 mg/dL (65-115); Osmolality Calculated 273 mOsm/kg (285-295); Potassium 3.9 mmol/L (3.5-5.1); Sodium 133 mmol/L (136-145)
--- NOTE | 2024-10-23 06:53 | W.PM.OPSUD ---
Surgery/Procedure H&P Update DATE OF PROCEDURE: October 23, 2024 DATE H&P PERFORMED: 10/23/24 H&P UPDATE INFORMATION: I have reviewed H&P completed within last 30 days, I have examined patient prior to procedure and No changes to prior documentation PREOP DIAGNOSIS: thickened endometrium on ultrasound PLANNED PROCEDURE: Operation Date: 10/23/24 07:00 Proposed Procedures p Hysteroscopy w/ Endometrial Sampling 37255 N94.10 R93.89(Not Applicable) - Mu Morris MD s POSSIBLE Endometrial Polypectomy(Not Applicable) - Mu Morris MD
--- NOTE | 2024-10-23 08:05 | PM.OP ---
Operative Report Date of procedure: October 23, 2024 Pre-op diagnosis: abnormal uterine bleeding Post-op diagnosis: same Post-op findings: one endometrial polyp Minimal endometrial tissue Normal appearing cervix Procedure done: Hysteroscopy Endometrial sampling and polypectomy with Myosure Curettage of uterus Implants: none Specimens removed/disposition: endometrial tissue Surgeon: Mu Morris MD Anesthesia: MAC Estimated blood loss (mL): 0 Complications: none Findings: one endometrial polyp Minimal endometrial tissue Normal appearing cervix Condition: stable Disposition: PACU Brief History: 59 y.o. with postmenopausal spotting Procedure: Informed consent signed. Patient was taken to the operating room. Anesthesia was induced. Patient was placed in dorsolithotomy position, prepped and draped for hysteroscopy. A bivalve speculum was placed in the vagina. The cervix and vagina were normal. The anterior lip of the cervix was grasped with a sharp-toothed tenaculum. The cervix was serially dilated with Hegar dilators. The uterus was sounded to 8 cm. A hysteroscope was placed into the endometrial cavity. There was one endometrial polyp. Minimal endometrial tissue was seen. The endocervical canal was normal. The endometrial cavity was otherwise normal. A Myosure device was then inserted and the endometrial polyp was removed and sent to pathology. Endometrial sampling was also done. The endometrial cavity was seen to be intact. The hysteroscope and Myosure were then removed. Curettage was done with a curette. Endometrial tissue was sent to pathology. The sharp-toothed tenaculum was removed. There was no bleeding from the endometrial cavity or cervix. The patient was then placed supine and awakened and taken to the PACU. Postop condition: stable EBL: none Sponge and instruments counts were normal x 2 Complications: none
--- NOTE | 2024-10-23 08:44 | ANE.PACU2 ---
Inpatient post-anesthesia follow up: Airway intact: Yes Vital signs: Temperature 97.6 F Pulse Rate 87 Respiratory Rate 17 Blood Pressure 141/80 Pulse Oximetry 93 Oxygen Delivery Me thod Room Air Oxygen Flow Rate Fraction of Inspir ed Oxygen Hydration adequate: Yes Nausea and vomiting: No Pain level: 1 Mental status: Baseline
== END 2024-10-23 08:44 | disposition home or self-care (01) ==
PROVIDERS: PCP Nurse Practitioner Family; Visit Provider Obstetrics & Gynecology
PROC: 0UJD8ZZ Inspection of Uterus and Cervix, Via Natural or Artificial Opening Endoscopic (ICD-10-PCS; CPT 58555; principal; 2024-10-23 07:00)
PROC: (CPT 58558; 2024-10-23 07:00)
DX: N93.9 Abnormal uterine and vaginal bleeding, unspecified (principal); N84.0 Polyp of corpus uteri; I10 Essential (primary) hypertension; Z79.01 Long term (current) use of anticoagulants; Z87.891 Personal history of nicotine dependence; Z86.79 Personal history of other diseases of the circulatory system; I48.20 Chronic atrial fibrillation, unspecified
CPT/HCPCS: 58558; 36415; 80048; 88305; A4216; J0690; J1100; J2405; J2704; J3010; J7030; J9999

== ENCOUNTER 2025-01-31 00:58 | Inpatient (IN) | payer MEDICAID, SELFPAY ==
--- OUTSIDE RECORDS SUMMARY | 2025-01-28 13:30 | XMS_ITS | Encounter Summary ---
Author Organization [facility] Address [address] [place] [address] Care Team Providers Care Equine Internship Name Role Phone Unavailable Primary Care Provider Unavailabl e Reason for Referral * Echocardiography (Routine) - Pending Review Specialty Diagnoses / Procedures Referred By Kali sierra Referred To Contact Radiology Diagnoses Atrial fibrillation, unspecified type (CMS/HCC) Procedures ECHO COMPLETE - CONTRAST AND STRAIN IF INDICATED ECHO COMPLETE - CONTRAST AND STRAIN IF INDICATED AL ECHO TTHRC R-T 2D W/WOM-MODE COMPL SPEC&COLR D AL MYOCRD STRAIN IMG SPECKLE TRCK ASSMT MYOCRD MECH AL TTE W OR WO FOL WCON,DOPPLER Shannon Castillo MD [address] [place] [address] Phone: tel: fax: [facility] [place] [address] [place] [address] Phone: tel: fax: Referral ID Status Reason Start Date Expiration Date V isits Requested Visits Authorized [id number] Pending Review 01/28/2025 02/28/2026 1 1 Reason for Visit * Reason Comments Referral * Eval and Treat (Routine) - Closed Specialty Diagnoses / Procedures Referred By Kail sierra Referred To Contact Cardiology Diagnoses Unspecified atrial fibrillation (CMS/HCC) Elio Mendez MD [address] [address] Phone: tel: fax: Shannon Castillo MD [address] [facility] [address] [place] [phone] Phone: tel: fax: Referral ID Status Reason Start Date Expiration Date Visits Re quested Visits Authorized [id number] Closed 01/03/2025 02/03/2026 1 1 Encounter Details Date Type Department Care Team (Late st Contact Info) Description 01/28/2025 1:30 PM CDT Office Visit [facility] [address] [facility] [address] [place] [phone] Shannon Castillo MD [address] [facility] [address] [place] [phone] Atrial fibrillation, unspecified type (CMS/HCC) (Primary Dx); PVC (premature ventricular contraction); Benign hypertension; Leg swelling Social History Tobacco Use Types Packs/Day Years Used Date Smoking Tobacco: Never Assessed Comments Unknown Sex and Gender Information Value Date Recorded Sex Assigned at Not on file Legal Sex Female 2:19 AM QUARTER SUPERVISOR Gender Identity Not on file Sexual Orientation Not on file documented as of this encounter Last Filed Vital Signs Vital Sign Reading Time Taken Comments Blood Pressure 118/64 01/28/2025 1:07 PM CDT Pulse 76 01/28/2025 1:07 PM CDT Temperature - - Respiratory Rate - - Oxygen Saturation - - Inhaled Oxygen Concentration - - Weight 54 kg (119 lb) 01/28/2025 1:07 PM CDT Height 167.6 cm (5' 6 ) 01/28/2025 1:07 PM CDT Body Mass Index 19.21 01/28/2025 1:07 PM CDT documented in this encounter Progress Notes * Shannon Castillo MD - 01/28/2025 1:45 PM CDT Requesting MD: Dr. Mendez Chief reason for consult: afib HPI: 60F, hx of HTN, no hyperlipidemia, DM. no PA/stroke, afib diagnosed 2 years ago with palpitation. Later EM reported persistent afib per patient. I don't have those tracing. She feels palpitation for many years. Today she mistake PVC as afib how she feels. EKG at office nsr 76 bpm, QRS 88, Qtc 452. , no significant q no sig ST change, frequent unifocal PVC, possible RVOT Echo 07/2024 LVEF 60% with mod MR. Normal LA size. Also complain of leg swelling sometimes. Now no chill/fever/cp. Other significant and relevant past medical Hx: not remarkable Social Hx: No active smoke, No excessive ETOH Family Hx: No sig SCD Review of System: Consitutional: no fever or chills Neurologic: No significant headache, recent stroke, or seizure. Eyes: No double visual ENT: No earache, nasal bleeding or signigicant sore throat Cardiac: as HPI Pulmonary: no cough off blood, or significant change in sputum production Gastrointestinal: No significant and prolonged diarrhea or constipation Genitourinary: No hematuria, dysuria. Skin: no significant rash Psychiatric: No clear depression Musculoskeletal: no significant change in myalgias or arthralgias Physical exam: Blood pressure 118/64, pulse 76, height 5' 6 (1.676 m), weight 54 kg (119 lb). General: Pt is alert and oriented, no apparent distress Skin: Warm, moist HEENT: Eyes motion intact, mouth and nose throat has no visible lesion; mucus Neck: supple, no significant lymphadenopathy Lungs: clear to auscultation with fair aeration, minimal crakles, no significant wheezing Heart: regular rate and rhythm; no sig murmur Abdomen: Soft, non tender, normal active bowel sounds Extremities: no significant open wound, trace edema Neuro: No gross motor or sensory deficits Psychiatric: no clear signs of depression or yvon Lab: No results found for: WBC , MANUALWBC , HGB , HGBPOC , HCT , HCTPOC , PLT , MCV Lab Results Component Value Date NA 134 (L) 09/24/2015 K 4.1 09/24/2015 CL 99 09/24/2015 CO2 27 09/24/2015 CA 8.8 09/24/2015 BUN 5 (L) 09/24/2015 CREAT 0.56 09/24/2015 GLUCOSE 82 09/24/2015 ANIONGAP 8 09/24/2015 No results found for: CPK , CKMB , TROPONIN , TROPONIINT , TROPINTR Current Outpatient Medications Medication Sig Dispense Refill amLODIPine (NORVASC) 5 mg tablet Take 1 Tablet by mouth daily. Eliquis 5 mg tablet Take 5 mg by mouth 2 times daily. estradioL (ESTRACE) 1 mg tablet Take 1 Tablet by mouth daily. furosemide (LASIX) 20 mg tablet Take 1 Tablet by mouth daily. medroxyPROGESTERone (PROVERA) 2.5 mg tablet Take 1 Tablet by mouth daily. metoprolol tartrate (LOPRESSOR) 100 mg tablet Take 100 mg by mouth. 100 mg in morning and 50 mg at night potassium CHLORIDE (MICRO-K EXTENCAPS) 8 mEq Extended Release capsule Take 2 Capsules by mouth daily. venlafaxine (EFFEXOR XR) 37.5 mg Extended Release 24 hour capsule Take 37.5 mg by mouth daily. No current facility-administered medications for this visit. Allergy no sig allergy to cardiac meds A/P: 60F, hx of HTN, no hyperlipidemia, DM. no PA/stroke, afib diagnosed 2 years ago with palpitation. Later EM reported persistent afib per patient. I don't have those tracing. She feels palpitation for many years. Today she mistake PVC as afib how she feels. EKG at office nsr 76 bpm, QRS 88, Qtc 452. , no significant q no sig ST change, frequent unifocal PVC, possible RVOT Echo 07/2024 LVEF 60% with mod MR. Normal LA size. Also complain of leg swelling sometimes. Afib, again her symptoms likely from PVC. Will need to confirm afib with EKG or EM which she will try to get. Start tambocor 100 bid and decrease lopressor to 50 bid. Continue eliquis for now. Prior trial of amio which causing sig side effect. 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 Tambocor and lopressor. Leg swelling, etiology unclear. L worst than R. MR, repeat echo to see if MR worsening. documented in this encounter Procedure Notes * Shannon Castillo MD - 01/28/2025 1:53 PM CDTAssociated Order(s): EKG 12-LEAD Procedure(s): AL ECG ROUTINE ECG W/LEAST 12 LDS W/I&R Pre-Procedure Diagnose(s): Atrial fibrillation, unspecified type (CMS/HCC) In my note documented in this encounter Plan of Treatment Upcoming Encounters Date Type Department Care Team (Late st Contact Info) Description 03/08/2025 1:15 PM CDT Appointment [facility] [place] [address] [place] [phone] Shannon Castillo MD [address] [place] [address] 05/24/2025 2:30 PM QUARTER SUPERVISOR Office Visit [facility] [address] [place] [address] Herbert Jimenez CRNP [address] [place] [address] Scheduled Orders Name Type Priority Associated Diagnoses Orde r Schedule ECHO COMPLETE - CONTRAST AND STRAIN IF INDICATED Echocardiogram Routine Atrial fibrillation, unspecified type (CMS/HCC) 1 Occurrences starting 01/28/2025 until 01/28/2026 documented as of this encounter Procedures Procedure Name Priority Date/Time Associated Diagnosis Comments AL ECG ROUTINE ECG W/LEAST 12 LDS W/I&R Routine 01/28/2025 1:53 PM CDT Atrial fibrillation, unspecified type (CMS/HCC) documented in this encounter Results * AL ECG ROUTINE ECG W/LEAST 12 LDS W/I&R (01/28/2025 1:53 PM CDT) Narrative [facility] - 01/28/2025 1:53 PM CDT Shannon Castillo MD 01/28/2025 1:54 PM In my note Procedure Note Shannon Castillo MD - 01/28/2025 1:53 PM CDT In my note us Shannon Castillo MD ECG ORDERABLES Final Result [facility] CARDIOLOGY [facility] [id number] [address] [facility] [address] [place] [address], [place] [phone] documented in this encounter Visit Diagnoses Diagnosis Atrial fibrillation, unspecified type (CMS/HCC)- Primary PVC (premature ventricular contraction) Other premature beats Benign hypertension Essential hypertension, benign Leg swelling Swelling of limb documented in this encounter
[2025-01-31] VITALS (23 sets, daily range): BP systolic 126–167; BP diastolic 71–100; PULSE 71–91; RESP 16–28; TEMP 36.4–36.7; O2SAT 91–100
--- OUTSIDE RECORDS SUMMARY | 2025-01-31 01:10 | XMS_ITS | Encounter Summary ---
Author Organization [facility] Address [address] [place] [address] Care Team Providers Care Senior Boiler Operator Name Role Phone Unavailable Primary Care Provider Unavailabl e Encounter Details Date Type Department Care Team (Late st Contact Info) Description 01/29/2025 External Device Data [facility] ABSTRACTION Provider, Abstract NO ADDRESS ON FILE Social History Tobacco Use Types Packs/Day Years Used Date Smoking Tobacco: Never Assessed Comments Unknown Sex and Gender Information Value Date Recorded Sex Assigned at Not on file Legal Sex Female 2:19 AM SUGARCANE RESEARCH TECHNICIAN Gender Identity Not on file Sexual Orientation Not on file documented as of this encounter Plan of Treatment Upcoming Encounters Date Type Department Care Team (Late st Contact Info) Description 03/08/2025 1:15 PM CDT Appointment [facility] Ultrasound [place] [address] [place] [address] Shannon Castillo MD [address] [place] [phone] 05/24/2025 2:30 PM SUGARCANE RESEARCH TECHNICIAN Office Visit [facility] Cardiology Heart [facility] [address] [place] [phone] Herbert Jimenez CRNP [address] [place] [address] documented as of this encounter Visit Diagnoses Not on filedocumented in this encounter
--- OUTSIDE RECORDS SUMMARY | 2025-01-31 01:10 | XMS_ITS | Clinical Summary ---
Author Organization [facility] Address [address] Gregory: Epic Prelude ADT JELENA OQUENDO [address] Care Team Providers Care Boot Turner Name Role Phone Unavailable Primary Care Provider Unavailabl e Allergies Active Allergy Reactions Criticality Noted Date Comments Amiodarone Diarrhea,Dizziness Low 01/28/2025 Medications amLODIPine (NORVASC) 5 mg tablet Take 1 Tablet by mouth daily. Active Eliquis 5 mg tablet Take 5 mg by mouth 2 times daily. 5 Active estradioL (ESTRACE) 1 mg tablet Take 1 Tablet by mouth daily. Active furosemide (LASIX) 20 mg tablet Take 1 Tablet by mouth daily. Active medroxyPROGESTE Bebeto (PROVERA) 2.5 mg tablet Take 1 Tablet by mouth daily. 5 Active potassium CHLORIDE (MICRO-K EXTENCAPS) 8 mEq Extended Release capsule Take 2 Capsules by mouth daily. Active venlafaxine (EFFEXOR XR) 37.5 mg Extended Release 24 hour capsule Take 37.5 mg by mouth daily. Active flecainide (TAMBOCOR) 100 mg tablet Take 1 Tablet (100 mg) by mouth 2 times daily. 180 Tablet 3 Active metoprolol tartrate (LOPRESSOR) 50 mg tablet Take 1 Tablet (50 mg) by mouth 2 times daily. 100 mg in morning and 50 mg at night 180 Tablet 3 Active metoprolol tartrate (LOPRESSOR) 100 mg tablet Take 100 mg by mouth. 100 mg in morning and 50 mg at night 5 01/29/20 Discontinu ed(Reorder ) Active Problems No known active problems Encounters Date Type Department Care Team Description 01/30/2025 External Device Data [facility] ABSTRACTION Provider, Abstract 01/30/2025 Telephone [place] [address] [place] [phone] Shannon Castillo MD Medication Question 01/29/2025 External Device Data ST[facility] ABSTRACTION Provider, Abstract 01/29/2025 External Device Data [facility] ABSTRACTION Provider, Abstract 01/29/2025 Abstract [place] [address] [place] [phone] Provider, Abstract 01/29/2025 Abstract [place] [address] [place] [phone] Provider, Abstract 01/28/2025 1:30 PM CDT Office Visit [place] [address] [phone] Shannon Castillo MD Atrial fibrillation, unspecified type (CMS/HCC) (Primary Dx); PVC (premature ventricular contraction); Benign hypertension; Leg swelling 01/16/2025 Orders Only [place] [address] [place] [phone] Shannon Castillo MD Referral of patient (Primary Dx) 01/03/2025 Abstract [place] [address] [phone] Elio Mendez MD from Last 3 Months Social History Tobacco Use Types Packs/Day Years Used Date Smoking Tobacco: Never Assessed Comments Unknown Sex and Gender Information Value Date Recorded Sex Assigned at Not on file Legal Sex Female 2:19 AM IMAGING SCHEDULER Gender Identity Not on file Sexual Orientation Not on file Last Filed Vital Signs Vital Sign Reading [...] Mass Index 19.21 01/28/2025 1:07 PM CDT Plan of Treatment Upcoming Encounters Date Type Department Care Team (Late st Contact Info) Description 03/08/2025 1:15 PM CDT Appointment [facility] Ultrasound [place] [address] [place] [address] Shannon Castillo MD [address] [place] [address] 05/24/2025 2:30 PM IMAGING SCHEDULER Office Visit [facility] [address] [place] [address] Herbert Jimenez CRNP [address] [place] [address] Health Maintenance Due Date Last Done Comments DTAP/TDAP/TD VACCINES (1 - Tdap) 1982 HPV/Cotest (21-29) 01/14/1984 CERVICAL CANCER SCREENING 1993 HPV/Cotest (30-65) 1993 PAP SMEAR 1993 BREAST CANCER SCREENING 2003 COLORECTAL SCREENING 01/14/2008 Colorectal Cancer Screening 01/14/2008 FIT-DNA Q 3 years 01/14/2008 FIT/FOBT Q 1 year 01/14/2008 Flex Sig/CT Colonography Q 5 years 01/14/2008 ZOSTER VACCINE (1 of 2) 2013 INFLUENZA VACCINE (#1) 2025 RSV VACCINE (60+ or ) (1 - 1-dose 75+ series) 2038 Procedures Procedure Name Priority Date/Time Associated Diagnosis Comments [place] ECG ROUTINE ECG W/LEAST 12 LDS W/I&R Routine 01/28/2025 1:53 PM CDT Atrial fibrillation, unspecified type (CMS/HCC) from Last 3 Months Results * IA ECG ROUTINE ECG W/LEAST 12 LDS W/I&R (01/28/2025 1:53 PM CDT) Narrative [facility] - 01/28/2025 1:53 PM CDT Shannon Castillo MD 01/28/2025 1:54 PM In my note Procedure Note Shannon Castillo MD - 01/28/2025 1:53 PM CDT In my note us Shannon Castillo MD ECG ORDERABLES Final Result [facility] CLIA [id number] [address] [facility] [address] [place] [address], [place] [phone] from Last 3 Months Insurance [employer] [facility] [id number]
--- OUTSIDE RECORDS SUMMARY | 2025-01-31 01:10 | XMS_ITS | Encounter Summary ---
Author Organization [facility] Address [address] [place] [address] Care Team Providers Care Ux Ui Designer Name Role Phone Unavailable Primary Care Provider [...] on file Legal Sex Female 2:19 AM DIRECTOR EPIDEMIOLOGY Gender Identity Not on file Sexual Orientation Not on file documented as of this encounter Plan of Treatment Upcoming Encounters Date Type Department Care Team (Late st Contact Info) Description 03/08/2025 1:15 PM CDT Appointment [facility] Ultrasound [place] [address] [place] [address] Shannon Castillo MD [address] [place] [phone] 05/24/2025 2:30 PM DIRECTOR EPIDEMIOLOGY Office Visit [facility] Cardiology Heart [facility] [address] [place] [phone] Herbert Jimenez CRNP [address] [place] [address] documented as of this encounter Visit Diagnoses Not on filedocumented in this encounter
--- OUTSIDE RECORDS SUMMARY | 2025-01-31 01:11 | XMS_ITS | Encounter Summary ---
Author Organization [facility] Address [address] [place] [address] Care Team Providers Care Soft Shoe Dancer Name Role Phone Unavailable Primary Care Provider Unavailabl e Encounter Details Date Type Department Care Team (Late st Contact Info) Description 01/30/2025 External Device Data [facility] ABSTRACTION Provider, Abstract NO ADDRESS ON FILE Social History Tobacco Use Types Packs/Day Years Used Date Smoking Tobacco: Never Assessed Comments Unknown Sex and Gender Information Value Date Recorded Sex Assigned at Not on file Legal Sex Female 2:19 AM INVOICE CODER Gender Identity Not on file Sexual Orientation Not on file documented as of this encounter Plan of Treatment Upcoming Encounters Date Type Department Care Team (Late st Contact Info) Description 03/08/2025 1:15 PM CDT Appointment [facility] Ultrasound [place] [address] [place] [address] Shannon Castillo MD [address] [place] [phone] 05/24/2025 2:30 PM INVOICE CODER Office Visit [facility] Cardiology Heart [facility] [address] [place] [phone] Herbert Jimenez CRNP [address] [place] [address] documented as of this encounter Visit Diagnoses Not on filedocumented in this encounter
--- OUTSIDE RECORDS SUMMARY | 2025-01-31 01:11 | XMS_ITS | Encounter Summary ---
Author Organization [facility] Address [address] [place] [address] Care Team Providers Care Medical Insurance Coding Specialist Name Role Phone Unavailable Primary Care Provider Unavailabl e Encounter Details Date Type Department Care Team (Late st Contact Info) Description 01/29/[address] [facility] [address] [place] [phone] Provider, Abstract NO ADDRESS ON FILE Social History Tobacco Use Types Packs/Day Years Used Date Smoking Tobacco: Never Assessed Comments Unknown Sex and Gender Information Value Date Recorded Sex Assigned at Not on file Legal Sex Female 2:19 AM SCHOOL VOCATIONAL EDUCATOR Gender Identity Not on file Sexual Orientation Not on file documented as of this encounter Plan of Treatment Upcoming Encounters Date Type Department Care Team (Late st Contact Info) Description 03/08/2025 1:15 PM CDT Appointment [facility] Ultrasound [place] [address] [place] [phone] Shannon Castillo MD [address] [place] [phone] 05/24/2025 2:30 PM SCHOOL VOCATIONAL EDUCATOR Office Visit [facility] [address] [place] [phone] Herbert Jimenez CRNP [address] [place] [phone] documented as of this encounter Procedures Procedure Name Priority Date/Time Associated Diagnosis Comments EKG 12-LEAD Routine 01/11/2023 documented in this encounter Results * EKG 12-LEAD (01/11/2023) us Abstract Provider ECG ORDERABLES Final Result documented in this encounter Visit Diagnoses Not on filedocumented in this encounter
--- OUTSIDE RECORDS SUMMARY | 2025-01-31 01:11 | XMS_ITS | Encounter Summary ---
Author Organization [facility] Address [address] [place] [address] Care Team Providers Care Abrading Machine Tender Name Role Phone Unavailable Primary Care Provider Unavailabl e Encounter Details Date Type Department Care Team (Late st Contact Info) Description 01/29/2025 Abstract [facility] [address] [place] [phone] Provider, Abstract NO ADDRESS ON FILE Social History Tobacco Use Types Packs/Day Years Used Date Smoking Tobacco: Never Assessed Comments Unknown Sex and Gender Information Value Date Recorded Sex Assigned at Not on file Legal Sex Female 2:19 AM RAGS LABORER Gender Identity Not on file Sexual Orientation Not on file documented as of this encounter Plan of Treatment Upcoming Encounters Date Type Department Care Team (Late st Contact Info) Description 03/08/2025 1:15 PM CDT Appointment [facility] Ultrasound [place] [address] [place] [phone] Shannon Castillo MD [address] [place] [phone] 05/24/2025 2:30 PM RAGS LABORER Office Visit [facility] [address] [place] [phone] Herbert Jimenez CRNP [address] [place] [phone] documented as of this encounter Procedures Procedure Name Priority Date/Time Associated Diagnosis Comments CARDIAC EVENT MONITOR Routine 03/07/2023 documented in this encounter Results * CARDIAC EVENT MONITOR (03/07/2023) Elio Mendez MD CARDIAC SERVICES ORDERABLES F inal Result documented in this encounter Visit Diagnoses Not on filedocumented in this encounter
--- OUTSIDE RECORDS SUMMARY | 2025-01-31 01:11 | XMS_ITS | Encounter Summary ---
Author Organization [facility] Address [address] [place] [address] Care Team Providers Care Laundry Equipment Operator Name Role Phone Unavailable Primary Care Provider Unavailabl e Reason for Visit * Reason Onset Date Comments Medication Question 01/30/2025 Encounter Details Date Type Department Care Team (Late st Contact Info) Description 01/30/2025 Telephone [facility] [address] [facility] [address] [place] [id number] Shannon Castillo MD [address] [facility] [address] [place] [phone] Medication Question Social History Tobacco Use Types Packs/Day Years Used Date Smoking Tobacco: Never Assessed Comments Unknown Sex and Gender Information Value Date Recorded Sex Assigned at Not on file Legal Sex Female 2:19 AM DIRECTOR OF INSTRUCTION Gender Identity Not on file Sexual Orientation Not on file documented as of this encounter Miscellaneous Notes * Telephone Encounter - Deepika Esquivel RN - 01/30/2025 1:59 PM CDT Called Debbie with [facility] back. Lopressor is to be taken 100 mg in morning and 50 mg at night. Pharmacist verbalized understanding and updated prescription. [facility] Call Center Communications Provider: MIGUEL A Caller: DEBBIE Alfaro/ [facility] - [place], [place] - [address] [facility] [address] Caller requests a call back to receive clarification on the directions of the pts metoprolol tartrate (LOPRESSOR) 50 mg tablet Cardiology Registered Radiation Therapist: Jeannie Coombs * Telephone Encounter - Jeannie Coombs - 01/30/2025 11:07 AM CDT [facility] Call Center Communications Provider: MIGUEL A Caller: DEBBIE Alfaro/ [facility] - [address] [phone] MESSAGE Caller requests a call back to receive clarification on the directions of the pts metoprolol tartrate (LOPRESSOR) 50 mg tablet Cardiology Registered Radiation Therapist: Jeannie Coombs documented in this encounter Plan of Treatment Upcoming Encounters Date Type Department Care Team (Late st Contact Info) Description 03/08/2025 1:[address] [facility] [address] [place] [phone] Shannon Castillo MD [address] [place] [phone] 05/24/2025 2:30 PM DIRECTOR OF INSTRUCTION Office Visit [facility] [address] [place] [phone] Herbert Jimenez CRNP [address] [place] [address] documented as of this encounter Visit Diagnoses Not on filedocumented in this encounter
--- NOTE | 2025-01-31 01:35 | XRR_ITS ---
PROCEDURE INFORMATION: Exam: XR Chest Exam date and time: 01/31/2025 1:49 AM Age: 60 years old Clinical indication: Shortness of breath TECHNIQUE: Imaging protocol: Radiologic exam of the chest. Views: 1 view. COMPARISON: CR XR chest 2V* [id number] 06/23/2023 10:39 AM, CT PE protocol dated 05/27/2023 FINDINGS: Lungs: Emphysematous changes are noted. Bibasilar interstitial opacification is noted, which may represent pulmonary edema and/or interstitial pneumonia. Pleural spaces: No pleural effusion. No pneumothorax is seen. Heart/Mediastinum: Mediastinal contours are within normal limits. The heart is normal in size. Bones/joints: Partially imaged cervical fusion hardware. No lytic or blastic lesions. No acute osseous abnormality. Intraperitoneal space: No free air is seen under the diaphragm. XR/XR chest 1V portable [id number] IMPRESSION: 1. Emphysema. 2. Bibasilar interstitial opacification favoring pulmonary edema or interstitial pneumonia.
--- NOTE | 2025-01-31 01:35 | ECG_ITS ---
[facility] Test Date: 2025-01-31 Pat Name: Elizabeth Avitia Department: Room: Gender: Female Solutions Market Consultant: : 1965 Requested By: Tyrell Islas Order Number: [id number] Hall MD: Elio Mendez M.D. Measurements Intervals [place] Rate: 81 P: 93 IA: 212 QRS: 79 QRSD: 111 T: 75 QT: 375 QTc: 437 Interpretive Statements SINUS RHYTHM WITH FIRST DEGREE AV BLOCK MODERATE INTRAVENTRICULAR CONDUCTION DELAY [110+ ms QRS DURATION] MINIMAL ST DEPRESSION [0.025+ mV ST DEPRESSION] Compared to ECG 05/27/2023 14:14:09 First degree AV block now present Intraventricular conduction delay now present ST (T wave) deviation now present Electronically Signed On 02-01-2025 22:49:08 CDT by Elio Mendez M.D. [id number]
[2025-01-31 01:41] LABS: Hematocrit 39.7 % (36-47); Hemoglobin 14.00 g/dL (11.27-16.99); Mean Corpuscular HGB Conc 35.3 g/dL (30-55); Mean Corpuscular Hemoglobin 33.1 pg (27-33); Mean Corpuscular Volume 93.9 fl (85-98); Nucleated Red Blood Cells % 0 %; Platelet Count 218 10^3/cmm (157-399); Red Blood Count 4.23 10^6/uL (3.85-5.65); White Blood Count 17.10 10^3/uL (3.29-11.43)
[2025-01-31 01:55] LABS: Troponin(5th) Baseline < 6 ng/L (0-10)
[2025-01-31 02:05] LABS: Alanine Aminotransferase 33 U/L (0-33); Albumin Level 4.9 g/dL (3.5-5.2); Alkaline Phosphatase 73 U/L (35-105); Anion Gap 19.9 (5-19); Aspartate Amino Transferase 36 U/L (0-32); Blood Urea Nitrogen 3 mg/dL (8-23); Calcium 9.2 mg/dL (8.5-10.5); Carbon Dioxide 22 mmol/L (22-29); Chloride 84 mmol/L (98-107); Creatinine Clr Calc Pharmacy 174.9264; Globulin 2.9 g/dL (1.3-4.6); Glucose 114 mg/dL (65-115); NT Pro B Type Natriuretic Pept 542 pg/mL (0-125); Osmolality Calculated 251 mOsm/kg (285-295); Potassium 3.9 mmol/L (3.5-5.1); Sodium 122 mmol/L (136-145); Total Protein 7.8 g/dL (6.6-8.7)
--- NOTE | 2025-01-31 02:39 | CTR_ITS ---
PROCEDURE INFORMATION: Exam: CT Chest Without Contrast; Diagnostic Exam date and time: 01/31/2025 2:47 AM Age: 60 years old Clinical indication: Shortness of breath; Additional info: SOB, ? fluid overload vs pneumonia. 83% o2 on ra[facility] 17k, newly TECHNIQUE: Imaging protocol: Diagnostic computed tomography of the chest without contrast. Radiation optimization: All CT scans at this facility use at least one of these dose optimization techniques: automated exposure control; mA and/or kV adjustment per patient size (includes targeted exams where dose is matched to clinical indication); or iterative reconstruction. COMPARISON: CT angio chest PE protcl [id number] 05/27/2023 4:23 PM RADIATION DOSE METRICS: Total DLP (mGy-cm): 401.83 FINDINGS: Thyroid: Thyroid is normal. Lungs: Centrilobular emphysematous changes of the lungs. Patchy airspace opacities in the axcs-vnypfzo-rlkh-right lung bases likely represent atelectasis. Infectious infiltrates could have a similar appearance. Pleural spaces: Stable right pleural calcifications. Small ifrp-kjsshal-kujd-right pleural effusions. Heart: Heart is normal in size. No pericardial effusion. Coronary arteries: Coronary artery calcifications. Lymph nodes: Small calcified hilar lymph nodes. No distinct pathologically enlarged lymphadenopathy. Vasculature: Mild scattered calcific atheromatous disease of the thoracic aorta. Bones/joints: No acute osseous findings. Soft tissues: Visualized superficial soft tissues are within normal limits. CT/CT chest [facility] [id number] IMPRESSION: 1. Small swql-sacpceq-zvot-right pleural effusions. 2. Patchy airspace opacities in the bcmr-zvhrbee-ztpj-right lung bases likely represent atelectasis. Infectious infiltrates could have a similar appearance. 3. Centrilobular emphysematous changes of the lungs. COMMENTS: The presence of pulmonary emphysema on CT is an independent risk factor for lung cancer. In the absence of a history or active diagnosis of lung cancer, it is recommended that this patient with emphysema be evaluated for enrollment in a low dose CT lung cancer screening program.
--- NOTE | 2025-01-31 02:49 | W.ED.SOB ---
HPI - SOB/Dyspnea General: Chief Complaint: Shortness of Breath/Dyspnea Stated Complaint: SOB, allergic Reaction Time Seen by Provider: 01/31/25 01:19 History of Present Illness: HPI Narrative: 60 yo F with Hx of atrial fibrillation presents with SOB for the past few days, markedly worse today. Pt began flecainide 100 mg on Tuesday (5 doses taken); Sx began the next day and have progressively worsened. Reports chronic bilateral leg swelling always, unchanged from baseline. Arrived on room air with SpO2 83%, placed on 4 L NC. Denies rash or itchiness. No home O2 currently; previously used O2 for about a week after a prior visit. On Eliquis for a couple years. Reports increased exertional dyspnea compared to one week ago when she could ambulate short distances with less difficulty. Pt and partner associate Sx with prior antiarrhythmic trials. ROS notable for no fever per triage, no rash, no pruritus. Related Data Home Medications ?Medication ?Instructions ?Recorded ?Confirmed amlodipine 5 mg tablet 5 mg PO DAILY 06/23/23 01/02/25 furosemide 20 mg tablet 20 mg PO DAILY 07/19/23 01/02/25 potassium chloride 8 mEq 8 meq PO BID 07/19/23 01/02/25 tablet,extended release venlafaxine 37.5 mg 37.5 mg PO DAILY 06/26/24 01/02/25 capsule,extended release 24 hr apixaban 5 mg tablet (Eliquis) 5 mg PO BID 10/22/24 01/02/25 estradiol 1 mg tablet 1 mg PO DAILY 10/22/24 01/02/25 medroxyprogesterone 2.5 mg tablet 2.5 mg PO DAILY 10/22/24 01/02/25 Previous Rx's ?Medication ?Instructions ?Recorded metoprolol tartrate 100 mg tablet 100 mg PO DIRECTED #135 tabs 04/16/24 Allergies Allergy/AdvReac Type Severity Reaction Status Date / Time No Known Allergies Allergy Verified 01/31/25 01:23 [facility] ED [facility]: Medical History (Updated 01/31/25 @ 04:14 by Tyrell Contreras MD) History of atrial fibrillation Surgical History No pertinent past surgical history Social History (Reviewed 01/02/25 @ 15:58 by Luigi Lemos Smoking and tobacco/nicotine status: former use of tobacco/nicotine Alcohol intake: never Substance/Drug Use: never Physical Exam Const: COMMON NORMALS: no acute distress, patient oriented x3 and alert HENMT: COMMON NORMALS: normocephalic and atraumatic HEAD & SCALP: normocephalic and atraumatic Eye: COMMON NORMALS: Equal, round and reactive pupils present, EOMs intact bilaterally and no scleral icterus PUPIL: Yes Equal, round and reactive pupils present Resp: OTHER: Tachypneic, no wheezes, mild rhonchi in both lung bases. Cardio: COMMON NORMALS: regular rate, regular rhythm and No murmurs present (Cardio) RATE: regular rate RHYTHM: regular rhythm OTHER: 1+ pitting edema of the bilateral feet and lower legs GI: COMMON NORMALS: Normal to inspection, nondistended, normoactive bowel sounds present, Soft to palpation and non-tender PALPATION: Yes Soft to palpation Neuro: COMMON NORMALS: patient oriented x3 SENSORIUM/ORIENTATION: Yes alert Skin: COMMON NORMALS: no rashes or lesions noted GENERAL SKIN EXAM: no rashes or lesions noted Course Vital Signs: Vital signs: Vital Signs Temperature 97.5 F L 01/31/25 01:04 Pulse Rate 88 01/31/25 04:30 Respiratory Rate 27 H 01/31/25 04:30 Blood Pressure 165/100 01/31/25 04:30 Pulse Oximetry 97 01/31/25 04:30 Oxygen Delivery Me thod Nasal Cannula 01/31/25 04:30 Oxygen Flow Rate 4 01/31/25 04:30 MDM - SOB/Dyspnea Medical Decision Making 60 yo F with AF on Eliquis presents with several days of worsening SOB starting the day after initiating flecainide 100 mg; arrives hypoxic (SpO2 83% RA), improved on 4 L NC. Chronic baseline leg edema per pt. Denies rash or pruritus. BP elevated; HR 84; RR 28. PE: moderate respiratory distress, tachypneic, lungs clear with good air movement; 1+ bilateral LE pitting edema to mid-coe. BNP 500. Chest x-ray concerning for bilateral lower lobe opacities versus pulmonary edema and will obtain CT scan to further evaluate. White blood cell count of 17,000 concerning for infectious etiology to the shortness of breath though she only complains of mild cough and no fever. D-dimer is negative and she is also on Eliquis at this pulmonary embolism is less likely DDx includes medication reaction to flecainide given temporal association. PE (pulmonary embolism) considered but felt less likely as pt is therapeutically anticoagulated with Eliquis. Volume overload considered; pt denies weight gain, but exam shows mild edema. Other causes of hypoxia not excluded. Noncontrasted CT of the chest again demonstrates bilateral pleural effusions and bilateral lower lobe opacities concerning for infiltrate versus atelectasis. Provide with 17,000 white blood cell count, I feel it is prudent to treat her with antibiotics and will give cefepime. she will also be given 40 mg IV Lasix for the pleural effusions. She will be admitted to the hospitalist service for further observation and care. Lab Data 01/31/25 01:14 01/31/25 01:14 Labs/Radiology: Radiology Impressions Chest X-Ray 01/31/25 01:35 IMPRESSION: 1. Emphysema. 2. Bibasilar interstitial opacification favoring pulmonary edema or interstitial pneumonia. Chest CT 01/31/25 02:39 IMPRESSION: 1. Small enik-gdwnxkg-lyte-right pleural effusions. 2. Patchy airspace opacities in the nbnl-ukypnfd-xxyh-right lung bases likely represent atelectasis. Infectious infiltrates could have a similar appearance. 3. Centrilobular emphysematous changes of the lungs. COMMENTS: The presence of pulmonary emphysema on CT is an independent risk factor for lung cancer. In the absence of a history or active diagnosis of lung cancer, it is recommended that this patient with emphysema be evaluated for enrollment in a low dose CT lung cancer screening program. Laboratory Results WBC 17.10 10^3/uL (3.29-11.43) H 01/31/25 01:14 RBC 4.23 10^6/uL (3.85-5.65) 01/31/25 01:14 Hgb 14.00 g/dL (11.27-16.99) 01/31/25 01:14 Hct 39.7 % (36-47) 01/31/25 01:14 MCV 93.9 fl (85-98) 01/31/25 01:14 MCH 33.1 pg (27-33) H 01/31/25 01:14 MCHC 35.3 g/dL (30-55) 01/31/25 01:14 RDW 11.4 % (12.1-15.1) L 01/31/25 01:14 Plt Count 218 10^3/cmm (157-399) 01/31/25 01:14 MPV 10.9 fL (7.4-10.4) H 01/31/25 01:14 Neut % (Auto) 74.9 % 01/31/25 01:14 Lymph % (Auto) 17.5 % 01/31/25 01:14 Wolfe % (Auto) 6.7 % 01/31/25 01:14 Eos % (Auto) 0.0 % 01/31/25 01:14 Baso % (Auto) 0.4 % 01/31/25 01:14 Neut # (Auto) 12.81 10^3/uL (1.8-7.7) H 01/31/25 01:14 Lymph # (Auto) 3.0 10^3/uL (0.8-4.8) 01/31/25 01:14 Wolfe # (Auto) 1.2 10^3/uL (0.2-0.9) H 01/31/25 01:14 Eos # (Auto) 0.0 10^3/uL (0.0-0.8) 01/31/25 01:14 Baso # (Auto) 0.1 10^3/uL (0.0-0.1) 01/31/25 01:14 Nucleated RBC % (auto) 0 % 01/31/25 01:14 Nucleated RBCs # 0.0 /100WBC 01/31/25 01:14 D-Dimer 0.29 ug/mLFEU (0-0.59) 01/31/25 01:14 Sodium 122 mmol/L (136-145) L 01/31/25 01:14 Potassium 3.9 mmol/L (3.5-5.1) 01/31/25 01:14 Chloride 84 mmol/L (98-107) L 01/31/25 01:14 Carbon Dioxide 22 mmol/L (22-29) 01/31/25 01:14 Anion Gap 19.9 (5-19) H 01/31/25 01:14 BUN 3 mg/dL (8-23) L 01/31/25 01:14 Creatinine 0.3 mg/dL (0.5-0.9) L 01/31/25 01:14 GFR Calculation 225.4 mL/min (90-130) H 01/31/25 01:14 Glucose 114 mg/dL (65-115) 01/31/25 01:14 Calculated Osmolality 251 mOsm/kg (285-295) L 01/31/25 01:14 Calcium 9.2 mg/dL (8.5-10.5) 01/31/25 01:14 Total Bilirubin 0.8 mg/dL (0.15-1.2) 01/31/25 01:14 AST 36 U/L (0-32) H 01/31/25 01:14 ALT 33 U/L (0-33) 01/31/25 01:14 Alkaline Phosphatase 73 U/L (35-105) 01/31/25 01:14 Troponin T Baseline < 6 ng/L (0-10) 01/31/25 01:14 Troponin T 120 Minute < 6.0 ng/L (0-10) 01/31/25 03:18 Delta Troponin T 0 ABS# (0-10) 01/31/25 03:18 NT-Pro-B Natriuret Pep 542 pg/mL (0-125) H 01/31/25 01:14 Total Protein 7.8 g/dL (6.6-8.7) 01/31/25 01:14 Albumin 4.9 g/dL (3.5-5.2) 01/31/25 01:14 Globulin 2.9 g/dL (1.3-4.6) 01/31/25 01:14 All radiology interpretation(s) finalized by discharge EKG Data EKG 1: Interpretation: Time?0117?sinus rhythm with first-degree block, rate of 81, no ST segment elevation or depression, no T wave versions, QTc = 412 Discharge Plan Discharge Patient Disposition: Admitted As Inpatient Admit Provider: Ceci Galloway Clinical Impression: Shortness of breath, Hypoxia, Tachypnea, Bilateral pleural effusion Condition: Stable Coding Level of Care Code ED Electric Motor Analyst for Arleneg Michael
[2025-01-31 03:45] LABS: Troponin 5 2HR < 6.0 ng/L (0-10); Troponin 5 2HR Delta 0 ABS# (0-10)
[2025-01-31] MEDS: FUROsemide 10 mg/mL SDV 4mL 40 MG IVP (04:20)
[2025-01-31 04:39] LABS: Procalcitonin 0.02 ng/mL (0-0.5)
[2025-01-31] MEDS: cefepime 2,000 mg SDV 2000 MG IVP ×2 (04:40→17:29)
--- NOTE | 2025-01-31 05:20 | PM.HP ---
Providers/Chief Complaint Admitting Physician: Ceci Galloway MD--patient seen and evaluated after 12 midnight Primary Care Provider: LU Paulson Chief Complaint: SOB, allergic Reaction History of Present Illness Elizabeth Avitia is a 60 year old female with medical history significant for atrial fibrillation and had been on Eliquis for the longest time, history of hypertension otherwise unremarkable. Patient presented to the emergency room with an ongoing shortness of breath with hypoxemia at home at 70s on room air. Patient does not take oxygen at home. Aside from this she is with dyspnea on exertion with hypoxemia. Initial troponin was eighteen 2-hour troponin was 48 a 6-hour troponin is pending. Patient does not have any chest pain. EKG has shown bilateral pleural effusion and opacity but no discrete pneumonia. At presentation patient was found to be at 83% on room air. White count was 17,000. Because of the shortness of breath patient actually was admitted to [facility] 3 days ago for a scheduled ablation of A-fib. At that visit there were no noted atrial fibrillation rather patient was in sinus rhythm with some PVCs. There were no ablation at the time. Today patient also is in sinus rhythm in the 70s. Patient proBNP was only 500. However patient did receive a dose of Lasix 40 mg IV x 1 in from the emergency room. Patient is on 4 L of oxygen at this time to maintain saturation. I have seen and evaluated patient D-dimer was 0.2 and was been noted that patient is not coughing. I have empirically started patient on antibiotics and take account of symptomatology and also bilateral pleural effusion with opacity likined to pneumonia. If the attending physician need to follow through with obtaining cardiology consult they could do that. I feel this is so much respiratory. Monitor patient on IV antibiotics at this time and start nebulizing treatment. Patient placed on n.p.o. just in case if cardiology needed to see her. Official radiographic reading states: XR/XR chest 1V portable [id number] IMPRESSION: 1. Emphysema. 2. Bibasilar interstitial opacification favoring pulmonary edema or interstitial pneumonia. Review of Systems Narrative: System review upon 10 organ review was swelling respiratory. Otherwise patient system review were all negative Medications/Allergies Home Medications ?Medication ?Instructions ?Recorded ?Confirmed ?Last Taken ?Type amlodipine 5 mg tablet 5 mg PO DAILY 06/23/23 01/02/25 10/22/24 History furosemide 20 mg tablet 20 mg PO DAILY 07/19/23 01/02/25 10/22/24 History potassium chloride 8 mEq 8 meq PO BID 07/19/23 01/02/25 10/22/24 History tablet,extended release metoprolol tartrate 100 mg tablet 100 mg PO DIRECTED #135 tabs 04/16/24 01/02/25 10/22/24 Rx venlafaxine 37.5 mg 37.5 mg PO DAILY 06/26/24 01/02/25 10/22/24 History capsule,extended release 24 hr apixaban 5 mg tablet (Eliquis) 5 mg PO BID 10/22/24 01/02/25 10/19/24 History estradiol 1 mg tablet 1 mg PO DAILY 10/22/24 01/02/25 10/22/24 History medroxyprogesterone 2.5 mg tablet 2.5 mg PO DAILY 10/22/24 01/02/25 10/22/24 History Allergies Allergy/AdvReac Type Severity Reaction Status Date / Time No Known Allergies Allergy Verified 01/31/25 01:23 PFSH Acute PFSH: Medical History History of atrial fibrillation Surgical History No pertinent past surgical history Social History Smoking and tobacco/nicotine status: former use of tobacco/nicotine Alcohol intake: never Substance/Drug Use: never Vitals/I&O/Wt Last Vital Signs Temp 97.5 F L 01/31/25 01:04 Pulse 77 01/31/25 05:00 Resp 24 H 01/31/25 05:00 BP 145/88 01/31/25 05:00 Pulse Ox 95 01/31/25 05:00 O2 Del Method Nasal Cannula 01/31/25 05:00 O2 Flow Rate 4 01/31/25 05:00 Weight last 48 hrs Weight 53.524 kg Physical Exam Narrative: Neurology patient is terrified of profound shortness of breath with dyspnea on exertion and hypoxemia with no cough. HEENT normocephalic atraumatic neck neck is supple cardiovascular heart rate is regular lungs are pretty much clear abdomen soft nontender nondistended unremarkable extremities are intact no edema has good pulses neurology has no focality lab studies lab studies reviewed and noted. Significantly sodium is 122 and white count is at 17. Data 01/31/25 01:14 01/31/25 01:14 A&P Assessment and plan 1. Emphysema lun. Bilateral pleural effusion: 3. Hypoxia: 4. Shortness of breath: 5. Hypertension: Plan: enphysematous lung with shortness of breath with hypoxemia - COPD exacerbation requiring oxygen at this time - Antibiotics for associated bronchitis - Nebulizing treatment - Radiographic noted bilateral small pleural effusion and opacity favoring a likely early pneumonia - Continue to treat and monitor Dyspnea on exertion with hypoxemia - Treat as above Bilateral pleural effusion with opacity likely early pneumonia - I have initiated azithromycin and ceftriaxone - Continue antibiotics - Continue supplemental oxygen at 3 L at this time with pulse oximetry at 95% - Without oxygen patient is in the 80s less than 85% - Patient had no chest pains and D-dimer is 0.2 within normal - Continue to treat and optimize GI and DVT prophylaxis in place History of atrial fibrillation patient in sinus rhythm - Patient is sinus in the 70s to 80s - Schedule ablation 3 days ago in [facility] did not take place because patient even then was found to be sinus rhythm with few PVCs - Continue Eliquis 5 mg twice daily as usual PDMP PDMP Reviewed: Last Reviewed 01/31/25 05:37 by Ceci Galloway MD Attestations Medical Necessity Statement*: Patient with new shortness of breath with hypoxemia limiting function daily for the patient needs to be staying at least 2 midnights for care patient meets inpatient criteria Coding Level of Care Code 05842 Diagnoses Emphysema lung J43.9 Bilateral pleural effusion J90 Hypoxia R09.02 Shortness of breath R06.02 Hypertension I10 Time Spent (min) 60
--- NOTE | 2025-01-31 05:47 | USCV_ITS ---
Elizabeth Avitia Age: 60 Gender: F : 1965 Exam Date: 01/31/2025 18:40 Ordering Phys: Ceci Galloway MD Technologist: RILEY [place] [facility] [place]: shortness of breath with hypoxemia. History of Atrial fibrillation , HTN BP: 132 / 73 HR: 83 Rhythm: Sinus rythm at outset, converting to Atrial fibrillation Technical Quality: Adequate MEASUREMENTS (Male / Female) Normal Values 2D ECHO LV Diastolic Diameter PLAX 4.1 cm 4.2 - 5.9 / 3.9 - 5.3 cm IVS Diastolic Thickness 1.0 cm 0.6 - 1.0 / 0.6 - 0.9 cm IVS Systolic Thickness 1.5 cm LVPW Diastolic Thickness 1.0 cm 0.6 - 1.0 / 0.6 - 0.9 cm LVPW Systolic Thickness 1.2 cm LVOT Diameter 1.7 cm LV Ejection Fraction 2D Teich 69.4 % LV Ejection Fraction MOD 4C 56.0 % LV Ejection Fraction MOD 2C 72.8 % LV Ejection Fraction 2C AL 73.4 % LA Diameter 3.1 cm Aorta at Sinotubular Diameter 2.5 cm IVC Diameter 1.2 cm M-MODE LA Ao Ratio MM 1.5 AV Cusp Separation MM 1.7 cm DOPPLER AV Peak Velocity 133.0 cm/s LVOT Peak Velocity 87.0 cm/s AV Area Cont Eq vti 1.4 cm squared AV Area Cont Eq pk 1.5 cm squared MV Peak Velocity 166.0 cm/s MV Area PHT 3.6 cm squared Mitral E to A Ratio 0.0 TV Peak Velocity 324.5 cm/s TR Peak Velocity 340.0 cm/s TR Peak Gradient 46.2 mmHg TV Peak E Velocity 63.0 cm/s PV Peak Velocity 90.0 cm/s FINDINGS Left Ventricle Normal left ventricular size, systolic function and wall thickness, with no regional wall motion abnormalities. Normal left ventricular size and systolic function, EF 55-60%. Right Ventricle Normal right ventricular size and systolic function. Right Atrium Normal right atrial size. Left Atrium Normal left atrial size. Mitral Valve Structurally normal mitral valve. Mild to moderate mitral regurgitation. Aortic Valve Structurally normal aortic valve. No aortic valve stenosis. Tricuspid Valve Mild tricuspid regurgitation. RVSP is 50-55mmHg. Moderate pulmonary hypertension Pulmonic Valve Not well visualized Pericardium Normal Aorta Normal in size IVC Appears to be normal CONCLUSIONS LV systolic function is normal with EF of 55-60% Mild to moderate mitral regurgitation Mild tricuspid regurgitation. Moderate pulmonary hypertension Elio Mendez MD (Electronically Signed) Final Date: 01 February 2025 10:06 S
[2025-01-31] MEDS: cefTRIAXone 1,000 mg SDV 1000 MG IVP (06:15)
[2025-01-31 07:11] LABS: Hematocrit 36.6 % (36-47); Hemoglobin 12.90 g/dL (11.27-16.99); Mean Corpuscular HGB Conc 35.2 g/dL (30-55); Mean Corpuscular Hemoglobin 32.6 pg (27-33); Mean Corpuscular Volume 92.4 fl (85-98); Nucleated Red Blood Cells % 0 %; Platelet Count 180 10^3/cmm (157-399); Red Blood Count 3.96 10^6/uL (3.85-5.65); White Blood Count 12.26 10^3/uL (3.29-11.43)
[2025-01-31 07:32] LABS: Lactic Sepsis W/Reflex 1.2 mmol/L (0.5-2.2)
[2025-01-31 07:33] LABS: Alanine Aminotransferase 28 U/L (0-33); Albumin Level 4.1 g/dL (3.5-5.2); Alkaline Phosphatase 63 U/L (35-105); Anion Gap 16.9 (5-19); Aspartate Amino Transferase 28 U/L (0-32); Blood Urea Nitrogen 3 mg/dL (8-23); Calcium 8.4 mg/dL (8.5-10.5); Carbon Dioxide 27 mmol/L (22-29); Chloride 80 mmol/L (98-107); Creatinine Clr Calc Pharmacy 174.9264; Globulin 2.6 g/dL (1.3-4.6); Glucose 119 mg/dL (65-115); Magnesium 1.2 mg/dL (1.7-2.3); Osmolality Calculated 248 mOsm/kg (285-295); Potassium 3.9 mmol/L (3.5-5.1); Sodium 120 mmol/L (136-145); Total Protein 6.7 g/dL (6.6-8.7); Troponin 5 6HR 7.63 ng/L (0-10); Troponin 5 6HR Delta 1.63001 ng/L (0-12)
--- NOTE | 2025-01-31 08:43 | PC.PHAR ---
Pt states she stopped Flecanide 100mg bid-due to the reaction. She currently takes Metoprolol tartrate 100mg-100mg in am and 50mg in pm. Dr Castillo ([facility]) reduced to 50mg bid and wrote new order for Flecanide 100mg bid. Since pt has stopped taking, she wants us to reach out to Dr Castillo and ask if she needs to go back to 100mg in am and 50mg in pm. [phone] Cardiology.
[2025-01-31] MEDS: magnesium sulfate premix 4 GM/100 ML PREMIX IV (12:30)
--- NOTE | 2025-01-31 14:38 | P.PN_ITS ---
Subjective 2 Subjective: Patient feeling better since admission. She starts by telling me her history of A-fib diagnosed 2 years ago. She has had problems with both Pacerone and flecainide more recently. She was actually at [facility] for an ablation when she was found to be in normal sinus rhythm with a few PVCs. The patient thinks the A-fib is causing her shortness of breath the patient does describe that she has COPD. She talks about her shortness of breath becoming worse over the last 3 to 6 months. She describes it got a lot worse after starting the flecainide Tuesday night. So she attributes the shortness of breath to either A-fib or the medication. Vitals/I&O/Wt Last Vital Signs Temp 98.1 F 01/31/25 11:35 Pulse 76 01/31/25 11:35 Resp 18 01/31/25 11:35 BP 146/75 01/31/25 11:35 Pulse Ox 99 01/31/25 11:35 O2 Del Method Nasal Cannula 01/31/25 11:35 O2 Flow Rate 3 01/31/25 11:16 01/30/25 01/31/25 01/31/25 22:59 06:59 14:59 Intake Total 350 / 350 Balance 350 / 350 Weight last 48 hrs Weight 53.524 kg Weight 53.524 kg Physical Exam 2 Narrative: Alert and oriented person place time and situation no acute distress Heart regular occasional missed beat found to be PVCs on monitor Lungs diminished throughout with some expiratory wheeze there is a mild inspiratory wheeze on the left as well in the upper lobe Abdomen flat soft nontender nondistended positive bowel sounds no hepatosplenomegaly Extremities no clubbing cyanosis or edema Data 01/31/25 07:04 01/31/25 07:04 A&P Assessment and plan 1. Interstitial pneumonia of both lungs: Left greater than right patchy airspace opacities in the bases 2. Centrilobular emphysema: As seen on CT dated 01/31/2025 3. Bilateral pleural effusion: Small bilateral left greater than right 4. Hypoxia: 5. Shortness of breath: 6. Hypokalemia: 7. Hyponatremia: Plan: Patient appears to have pneumonia clinically with elevated white blood cell count her history and findings on x-ray and CAT scan of chest. Continue Maxipime and azithromycin. DuoNebs and and incentive spirometer O2 sats Patient with hypomagnesia and this was replaced with 4 g for a magnesium level of 1.2 her potassium was normal Regarding hyponatremia. Stat urine lytes were ordered awaiting results Patient request to stop flecainide which I agree with. Patient is currently on Eliquis for her A-fib as well as metoprolol for rate control PDMP PDMP Reviewed: Not Reviewed Attestations 2 Medical Necessity Statement*: Patient with new shortness of breath with hypoxemia limiting function daily for the patient needs to be staying at least 2 midnights for care patient meets inpatient criteria Coding Level of Care Code 24073 Diagnoses Interstitial pneumonia of both lungs J84.9 Centrilobular emphysema J43.2 Emphysema type: centrilobular Bilateral pleural effusion J90 Hypoxia R09.02 Shortness of breath R06.02 Hypokalemia E87.6 Hyponatremia E87.1
[2025-01-31 16:42] LABS: Potassium, Radom Urine 4 mmol/L
[2025-01-31 17:13] LABS: Urine Random Chloride < 10 mmol/L; Urine Random Sodium < 10 mmol/L
[2025-01-31] MEDS: venlafaxine ER (24HR) 37.5 mg Capsule PO (17:29)
[2025-02-01] VITALS (7 sets, daily range): BP systolic 112–119; BP diastolic 57–71; PULSE 66–87; RESP 16–18; TEMP 36.6–36.7; O2SAT 92–94
[2025-02-01] MEDS: cefTRIAXone 1,000 mg SDV 1000 MG IVP (04:55)
[2025-02-01] MEDS: cefepime 2,000 mg SDV 2000 MG IVP (04:55)
[2025-02-01 05:17] LABS: Hematocrit 32.4 % (36-47); Hemoglobin 11.30 g/dL (11.27-16.99); Mean Corpuscular HGB Conc 34.9 g/dL (30-55); Mean Corpuscular Hemoglobin 32.8 pg (27-33); Mean Corpuscular Volume 94.2 fl (85-98); Nucleated Red Blood Cells % 0 %; Platelet Count 176 10^3/cmm (157-399); Red Blood Count 3.44 10^6/uL (3.85-5.65); White Blood Count 5.90 10^3/uL (3.29-11.43)
[2025-02-01 05:35] LABS: Anion Gap 13.5 (5-19); Blood Urea Nitrogen 4 mg/dL (8-23); Calcium 8.3 mg/dL (8.5-10.5); Carbon Dioxide 28 mmol/L (22-29); Chloride 93 mmol/L (98-107); Creatinine Clr Calc Pharmacy 173.8128; Glucose 106 mg/dL (65-115); Magnesium 2.0 mg/dL (1.7-2.3); Osmolality Calculated 269 mOsm/kg (285-295); Potassium 3.5 mmol/L (3.5-5.1); Sodium 131 mmol/L (136-145)
--- NOTE | 2025-02-01 09:33 | PM.DCS ---
Discharge Providers Date of Admission: 01/31/25 04:14 Date of Discharge: February 01, 2025 Attending Provider at Admission: eCci Galloway MD Attending Provider at Discharge: Dimas Jeter DO Primary Care Provider: LU Paulson Diagnoses at Discharge Discharge Diagnosis 1. Interstitial pneumonia of both lungs: 2. Centrilobular emphysema: 3. Bilateral pleural effusion: 4. Hypoxia: 5. Shortness of breath: 6. Hypokalemia: 7. Hyponatremia: Reason for Visit Reason for Visit: SOB, allergic Reaction Brief History: 60-year-old female with a 2-year history of atrial fibrillation on anticoagulation and metoprolol. She was recently started on flecainide 2 days prior to admission. She went to [facility] for ablation but was found to be in normal sinus rhythm. Thus she was started on flecainide. She reports significant side effects to Pacerone and now flecainide. She relates her shortness of breath to A-fib. Her shortness of breath got worse since Tuesday and she found her oxygen sats were 70 at home. Her O2 sats was 83% on room air here with a white count of 17,000. She had an abnormal CT of the chest with with small bilateral pleural effusions and bilateral opacities consistent with pneumonia Hospital Course Hospital Course Patient was admitted to the general medical floor. She was started on IV fluids and given IV antibiotics. She did have a low sodium that appears to be related from poor dietary intake with this illness. It responded to fluids overnight. Patient takes Lasix at home and this was held. Her potassium was low and required oral replacement. Although initially in the ER she required oxygen by the following morning she was off oxygen. She is maintaining her O2 sats satisfactorily without oxygen she has no shortness of breath at rest. Her white blood cell came down from 12.2-5.9 today. The plan is to stop flecainide continue Eliquis and metoprolol. Hold Lasix and potassium for about a week. She will complete a course of antibiotics Omnicef and Zithromax for the pneumonia. She is to follow-up with her primary care after the completion of antibiotics and with Dr. Ortega as needed for paroxysmal atrial fibrillation. Physical Exam Narrative: Alert and oriented person place time and situation no acute distress Heart regular occasional missed beat found to be PVCs on monitor Lungs diminished throughout with mild expiratory wheeze Abdomen flat soft nontender nondistended positive bowel sounds no hepatosplenomegaly Extremities no clubbing cyanosis or edema Discharge Data Studies Completed and Pending Completed Studies During Hospitalization Category Date Time Status CT chest wo con [id number] Stat Cat Scan 01/31/25 02:39 Completed XR chest 1V portable [id number] Stat Exams 01/31/25 01:35 Completed Pending at discharge Category Date Time Status CV. echo complete* [id number] Routine Ultrasound 01/31/25 05:47 Taken Radiology Impressions Chest X-Ray 01/31/25 01:35 IMPRESSION: 1. Emphysema. 2. Bibasilar interstitial opacification favoring pulmonary edema or interstitial pneumonia. Chest CT 01/31/25 02:39 IMPRESSION: 1. Small icyh-airoweo-pogb-right pleural effusions. 2. Patchy airspace opacities in the vkyu-xaoquea-thlv-right lung bases likely represent atelectasis. Infectious infiltrates could have a similar appearance. 3. Centrilobular emphysematous changes of the lungs. COMMENTS: The presence of pulmonary emphysema on CT is an independent risk factor for lung cancer. In the absence of a history or active diagnosis of lung cancer, it is recommended that this patient with emphysema be evaluated for enrollment in a low dose CT lung cancer screening program. Laboratory Results WBC 5.90 10^3/uL (3.29-11.43) 02/01/25 05:07 RBC 3.44 10^6/uL (3.85-5.65) L 02/01/25 05:07 Hgb 11.30 g/dL (11.27-16.99) 02/01/25 05:07 Hct 32.4 % (36-47) L 02/01/25 05:07 MCV 94.2 fl (85-98) 02/01/25 05:07 MCH 32.8 pg (27-33) 02/01/25 05:07 MCHC 34.9 g/dL (30-55) 02/01/25 05:07 RDW 11.4 % (12.1-15.1) L 02/01/25 05:07 Plt Count 176 10^3/cmm (157-399) 02/01/25 05:07 MPV 10.3 fL (7.4-10.4) 02/01/25 05:07 Neut % (Auto) 60.8 % 02/01/25 05:07 Lymph % (Auto) 28.5 % 02/01/25 05:07 [place] % (Auto) 9.8 % 02/01/25 05:07 Eos % (Auto) 0.2 % 02/01/25 05:07 Baso % (Auto) 0.5 % 02/01/25 05:07 Neut # (Auto) 3.59 10^3/uL (1.8-7.7) 02/01/25 05:07 Lymph # (Auto) 1.7 10^3/uL (0.8-4.8) 02/01/25 05:07 [place] # (Auto) 0.6 10^3/uL (0.2-0.9) 02/01/25 05:07 Eos # (Auto) 0.0 10^3/uL (0.0-0.8) 02/01/25 05:07 Baso # (Auto) 0.0 10^3/uL (0.0-0.1) 02/01/25 05:07 Nucleated RBC % (auto) 0 % 02/01/25 05:07 Nucleated RBCs # 0.0 /100WBC 02/01/25 05:07 D-Dimer 0.29 ug/mLFEU (0-0.59) 01/31/25 01:14 Sodium 131 mmol/L (136-145) L 02/01/25 05:07 Potassium 3.5 mmol/L (3.5-5.1) 02/01/25 05:07 Chloride 93 mmol/L (98-107) L 02/01/25 05:07 Carbon Dioxide 28 mmol/L (22-29) 02/01/25 05:07 Anion Gap 13.5 (5-19) 02/01/25 05:07 BUN 4 mg/dL (8-23) L 02/01/25 05:07 Creatinine 0.3 mg/dL (0.5-0.9) L 02/01/25 05:07 GFR Calculation 225.4 mL/min (90-130) H 02/01/25 05:07 Glucose 106 mg/dL (65-115) 02/01/25 05:07 Calculated Osmolality 269 mOsm/kg (285-295) L 02/01/25 05:07 Lactic Acid 1.2 mmol/L (0.5-2.2) 01/31/25 07:04 Calcium 8.3 mg/dL (8.5-10.5) L 02/01/25 05:07 Phosphorus 3.0 mg/dL (2.5-4.5) 01/31/25 07:04 Magnesium 2.0 mg/dL (1.7-2.3) 02/01/25 05:07 Total Bilirubin 0.9 mg/dL (0.15-1.2) 01/31/25 07:04 AST 28 U/L (0-32) 01/31/25 07:04 ALT 28 U/L (0-33) 01/31/25 07:04 Alkaline Phosphatase 63 U/L (35-105) 01/31/25 07:04 Troponin T Baseline < 6 ng/L (0-10) 01/31/25 01:14 Troponin T 120 Minute < 6.0 ng/L (0-10) 01/31/25 03:18 Delta Troponin T 0 ABS# (0-10) 01/31/25 03:18 Troponin T Hi Sens 6Hr 7.63 ng/L (0-10) 01/31/25 07:04 Troponin T Hi Sens 6Hr Delta 1.80603 ng/L (0-12) 01/31/25 07:04 NT-Pro-B Natriuret Pep 542 pg/mL (0-125) H 01/31/25 01:14 Total Protein 6.7 g/dL (6.6-8.7) 01/31/25 07:04 Albumin 4.1 g/dL (3.5-5.2) 01/31/25 07:04 Globulin 2.6 g/dL (1.3-4.6) 01/31/25 07:04 Procalcitonin 0.02 ng/mL (0-0.5) 01/31/25 03:18 Ur Random Sodium < 10 mmol/L 01/31/25 14:56 Ur Random Potassium 4 mmol/L 01/31/25 14:56 Ur Random Chloride < 10 mmol/L 01/31/25 14:56 Vitals Last Vital Signs Temp 97.9 F 02/01/25 07:46 Pulse 75 02/01/25 07:46 Resp 16 02/01/25 07:17 BP 119/71 02/01/25 07:46 Pulse Ox 92 02/01/25 07:46 O2 Del Method Room Air 02/01/25 07:46 O2 Flow Rate 3 01/31/25 15:43 Discharge Plan Discharge Patient Disposition: Home Condition: Stable Prescriptions: New cefdinir 300 mg capsule 300 mg PO BID 10 Days Qty: 20 0RF Combivent Respimat 20-100 mcg/actuation mist 1 puff inhalation QID Qty: 4 0RF Rx Instructions: space evenly during waking hours azithromycin [Zithromax] 500 mg tablet 500 mg PO DAILY 7 Days Qty: 7 0RF Continued venlafaxine 37.5 mg capsule,extended release 24hr 37.5 mg PO QPM metoprolol tartrate 100 mg tablet 100 mg PO DIRECTED Qty: 135 3RF Rx Instructions: Take 100mg (1 tab) in the AM and 50mg (1/2 tab) in the PM amlodipine 5 mg tablet 5 mg PO DAILY medroxyprogesterone 2.5 mg tablet 2.5 mg PO DAILY estradiol 1 mg tablet 1 mg PO DAILY Eliquis 5 mg tablet 5 mg PO BID Held potassium chloride 8 mEq tablet extended release 8 meq PO BID Hold Instructions: Resume on 02/05/25. furosemide 20 mg tablet 20 mg PO DAILY Hold Instructions: Resume on 02/05/25. Discontinued flecainide 100 mg tablet 100 mg PO BID Patient Care Assistant OK for DC: Hospitalist Discharge Order = DC NOW: Discharge Order (Routine); Ordered 02/01/25 Ordered By: Dimas Jeter Referrals: Nelida Jarquin FNP [Primary Care Provider, Nurse Practitioner] - 02/06/25 1:00 pm Discharge Diet: Advance as tolerated Discharge Activity: Increase activity as tolerated Patient Instructions: COPD, Ciprofloxacin (By mouth), Azithromycin (By mouth), Ipratropium/Albuterol (By breathing) (Combivent, Combivent..., Viral Pneumonia (DC), Hyponatremia (DC), COPD Stoplight, Pneumonia Stoplight, Patient Portal & Charmaine Instructions Discharge Attestations Time Spent in Discharge Care*: greater than 30 min Quality Metrics Clinical Quality Measures [ No reported AMI, CVA or VTE this stay] Coding Level of Care Code Acute Code for Chg Fwd Diagnoses Interstitial pneumonia of both lungs J84.9 Centrilobular emphysema J43.2 Emphysema type: centrilobular Bilateral pleural effusion J90 Hypoxia R09.02 Shortness of breath R06.02 Hypokalemia E87.6 Hyponatremia E87.1
--- NOTE | 2025-02-01 10:04 | PC.CHAP ---
Pastoral Care Encounter/Spiritual Assessment Type of Contact [] Declined content creation manager visit [] Patient/Family/Request visit [] Outpatient visit [] Follow-up visit [] Physician referral [] Code/Alert [x] Routine visit [] Staff referral [] Actively dying [] Patient sleeping [] Family support [] [] Out of room [] Palliative care [] [] Receiving care in room [] Pre-surgical visit [] Trauma [] Long length of stay [] ICU visit [] Other: Relational/Emotional Strength [x] Patient feels connected with others/family/visitors/staff [] Distress [] Loneliness/isolation [] Abandonment Spirituality of Patient [x] Person of [place] [] Attends Lutheran of their [place] [x] Believes in Prayer [] Reads Bible or Moravian materials [] There are Spiritual issues to be addressed Product Safety Engineer Interventions [x] Prayer [x Active listening [] Non-anxious presence [x] Spiritual/emotional support [] Crisis/trauma care [] Spiritual counseling [] Bereavement support [] Provided bereavement packet [] Provided Bible/devotional materials [] Provided toy/stuffed animal, coloring book to patient or family member [] Provided Communion [] Anointing/[place] [] Salvation [x] Completed spiritual assessment [] Other: Impact on Illness or Injury [] Angry [] Fearful [] Anxious [] Often cries [] Exhaustion [] Unable to work [] Unable to attend hindu [] Unable to walk/stand [] Unable to read [] Unable to drive [] Unable to eat/drink [] Unable to sleep [] Unable to be with family [] Patient intubated [] Other: Summary Time spent with patient 5 min
== END 2025-02-01 11:45 | disposition home or self-care (01) | DRG 197 ==
LOC: ER 04:13 → ER IP 04:22 → MEDSURG 04:48
PROVIDERS: Admitting Provider Internal Medicine; Emergency Provider Student in an Organized Health Care Education/Training Program; PCP Nurse Practitioner Family; Visit Provider Internal Medicine
DX: J84.9 Interstitial pulmonary disease, unspecified (principal); E87.1 Hypo-osmolality and hyponatremia; J90 Pleural effusion, not elsewhere classified; J43.2 Centrilobular emphysema; R09.02 Hypoxemia; E87.6 Hypokalemia; I48.0 Paroxysmal atrial fibrillation; I10 Essential (primary) hypertension; E83.42 Hypomagnesemia; Z79.01 Long term (current) use of anticoagulants; Z79.890 Hormone replacement therapy; Z87.891 Personal history of nicotine dependence
CPT/HCPCS: 36415; 71045; 71250; 80048; 80053; 82436; 83605; 83735; 83880; 84100; 84133; 84145; 84300; 84484; 85025; 85378; 93005; 93306; 94640; 94664; 96374; 96375; 99285; J0456; J0692; J0696; J1938; J3475; J7050; J8499; J9999